=== PATIENT | male | born 1935 | race African-American/Black ===

== ENCOUNTER 2018-11-17 09:46 | Inpatient (IN) | payer MEDICARE, MEDICAID ==
[~2018-11-17] VITALS: Ht 177.8 cm; Wt 97.5 kg
--- NOTE | 2018-11-17 10:04 | NUR ---
ED Nurse Note: PT BROUGHT IN BY AMBULANCE FROM HOME. AOX4. PT C/O LEFT LEG WEAKNESS AND PAIN, 06/28 X 3 DAYS AGO TO THE POINT HE IS UNABLE TO WALK. PT STATES HE HAD 2 FALL X YESTERDAY. PT DENIES LOC OR HEAD TRAUMA. 3/5 MUSCLE STRENGTH OF LEFT FOOT AND LEG, CIRCULATION AND SENSATION INTACT, CAP REFILL <3 SECONDS, FULL ROM OF EXTREMITY. OF NOTE, PT STATES HE WAS SEEN AT [facility] X 2 DAYS AGO FOR THE SAME COMPLAINTS BUT WAS DC'D AFTER PAIN MEDICATIONS.
--- NOTE | 2018-11-17 10:04 | NUR ---
Note undone in EDM - 11/17/18 at 1013 by EAN ED Nurse Note: PT BROUGHT IN BY AMBULANCE FROM HOME. AOX4. PT C/O BILATERAL LEG WEAKNESS AND PAIN, 10/10 X 3 DAYS AGO TO THE POINT HE IS UNABLE TO WALK. PT STATES HE HAD 2 FALL X YESTERDAY. PT DENIES LOC OR HEAD TRAUMA. 3/5 MUSCLE STRENGTH OF BILATERAL FEET AND LEGS, CIRCULATION AND SENSATION INTACT, CAP REFILL <3 SECONDS, FULL ROM OF EXTREMITIES.
[2018-11-17 10:09] VITALS: BP 160/77
[2018-11-17] MEDS ORDERED: SODIUM CHLORIDE IVLG ONE (10:15)
[2018-11-17 10:50] LABS: APPEARANCE,URINE CLEAR; BASOPHILS % (AUTO) 0.7 % (0.0-2.0); BILIRUBIN, URINE NEGATIVE (NEGATIVE); COLOR,URINE PALE YELLOW; EOSINOPHILS % (AUTO) 1.7 % (0.0-3.0); GLUCOSE, URINE (UA) NEGATIVE (NEGATIVE); HEMATOCRIT 35.6 % (42.0-52.0); HEMOGLOBIN 11.8 G/DL (14.2-18.0); KETONES,URINE NEGATIVE (NEGATIVE); LEUKOCYTE ESTERASE ,URINE NEGATIVE (NEGATIVE); LYMPHOCYTES % (AUTO) 24.3 % (20.0-45.0); MEAN CORPUSCULAR VOLUME 90 FL (80-99); MONOCYTES % (AUTO) 6.6 % (1.0-10.0); NEUTROPHILS % (AUTO) 66.7 % (45.0-75.0); NITRITE,URINE NEGATIVE (NEGATIVE); PH,URINE 5 (4.5-8.0); PLATELET COUNT 167 K/UL (150-450); PROTEIN,URINE NEGATIVE (NEGATIVE); RED BLOOD COUNT 3.95 M/UL (4.70-6.10); RED CELL DISTRIBUTION WIDTH 12.8 % (11.6-14.8); UROBILINOGEN,URINE NORMAL MG/DL (0.0-1.0); WHITE BLOOD COUNT 5.3 K/UL (4.8-10.8)
[2018-11-17 11:06] LABS: ANION GAP 12 mmol/L (5-15); BLOOD UREA NITROGEN 17 mg/dL (7-18); CALCIUM 9.2 MG/DL (8.5-10.1); CARBON DIOXIDE 27 MMOL/L (21-32); CHLORIDE 102 MMOL/L (98-107); CREATININE 1.6 MG/DL (0.55-1.30); POTASSIUM 4.1 MMOL/L (3.5-5.1); SODIUM 141 MMOL/L (136-145)
[2018-11-17 11:18] LABS: ALANINE AMINOTRANSFERASE 11 U/L (12-78); ALBUMIN 3.6 G/DL (3.4-5.0); ALBUMIN/GLOBULIN RATIO 0.8 (1.0-2.7); ALKALINE PHOSPHATASE 98 U/L (46-116); ASPARTATE AMINO TRANSFERASE 12 U/L (15-37); BILIRUBIN,TOTAL 0.5 MG/DL (0.2-1.0); CKMB 0.9 NG/ML (0.0-3.6); CREATINE KINASE 53 U/L (26-308)
[2018-11-17] MEDS ORDERED: Ketorolac 30mg Inj IV ONE (11:45)
[2018-11-17 12:09] VITALS: BP 189/69
[2018-11-17] MEDS ORDERED: MITIGARE0.6 MG PO (12:20)
[2018-11-17] MEDS ORDERED: ATENOLOL100 MG ORAL (12:20)
[2018-11-17] MEDS ORDERED: ADALAT20 MG ORAL (12:20)
[2018-11-17] MEDS ORDERED: TAMSULOSIN HCL0.4 MG ORAL (12:20)
[2018-11-17] MEDS ORDERED: ALLOPURINOL100 M1 ORAL (12:20)
[2018-11-17] MEDS ORDERED: Fleet's Enema 133ml RECTAL ONE (12:30)
--- NOTE | 2018-11-17 12:30 | NUR ---
ED Nurse Note: PT TO CT VIA CAROLANN
--- NOTE | 2018-11-17 12:49 | NUR ---
ED Nurse Note: PT BACK FROM CT VIA CAROLANN.
--- NOTE | 2018-11-17 13:29 | Diagnostic Imaging Report ---
Indication: Bilateral flank pain and hematuria Technique: Spiral acquisitions obtained through the abdomen and pelvis. No oral contrast utilized, per emergency room physician request No IV contrast utilized, due to history of renal insufficiency.. Multiplanar reconstructions were generated. Total dose length product 978.52 mGycm. CTDIvol(s) 18.6 mGy. Dose reduction achieved using automated exposure control Comparison: None Findings: A 12 mm calcification projects posterior to the bladder on the right. This is in the expected region of the right ureteral orifice, and the right ureter does appear to lead into it. However, there is no evidence of hydronephrosis or hydroureter on the right. No intrarenal calculi are demonstrated on the right. No left renal or ureteral calculi, hydronephrosis, or hydroureter demonstrated. A parenchymal calcification is seen in the lower pole of the left kidney measuring approximately 6 mm in diameter. Adjacent to the renal sinus, there is a 10 mm area of slight hyperattenuation lack of IV contrast limits assessment of the renal parenchyma. No other gross renal parenchymal mass or cyst demonstrated. The bladder is distended. The prostate is enlarged, measuring 5 cm transverse diameter by 5 cm AP diameter, protrudes into the bladder lumen. It contains a calcification. Lack of IV contrast limits assessment of the other solid organs. The liver, gallbladder, spleen, adrenals, pancreas are all unremarkable. No retroperitoneal or mesenteric mass or adenopathy. No pelvic mass or adenopathy. The bladder is distended No evidence of colonic diverticulosis or diverticulitis. The appendix is normal. No small bowel distention. No free or loculated intraperitoneal gas or fluid. There is a tiny fat-containing umbilical hernia incidentally noted. The stomach demonstrates a small sliding-type hiatal hernia, is otherwise unremarkable. The distal esophagus and duodenum are unremarkable. The bones demonstrate numerous osteoblastic lesions scattered throughout the pelvis, spine, and ribs. There is a compression fracture deformity of the superior and inferior endplates of L2. Age of this is indeterminate. There are degenerative changes of the lumbar spine The included lung bases demonstrate posterior basilar atelectatic changes. Impression: 12 mm calcification posterior to the bladder on the right. This appears to be at the level of the ureteral orifice, and the right ureter appears to lead into it. However, very unusual for such a large calcification have traveled as far down the ureter, and even more unusual for not to be causing any hydronephrosis. Therefore, relation to the ureter is indeterminate. Correlate with clinical findings Numerous osseous osteoblastic lesions, likely representing metastatic prostate carcinoma. Enlarged prostate 1 cm slightly hyperattenuating lesion within the left renal sinus. Of uncertain etiology. Consider follow-up CT scan with contrast, versus follow-up sonography for better characterization Somewhat distended bladder L2 superior and inferior endplate compression fracture deformities, age indeterminate. Incidental findings of basilar pulmonary atelectatic changes, small hiatal hernia, degenerative spondylosis Findings discussed by phone with Dr. House at the time of interpretation The CT scanner at [facility] is accredited by the [employer] and the scans are performed using protocols designed to limit radiation exposure to as low as reasonably achievable to attain images of sufficient resolution adequate for diagnostic evaluation.
--- NOTE | 2018-11-17 13:50 | NUR ---
Julisa freeman in EDM - 11/17/18 at 1626 by EAN ED Nurse Note: [facility] UNIT CALLED FOR PT REPORT. RN STILL NOT READY.
--- NOTE | 2018-11-17 13:50 | NUR ---
ED Nurse Note: [facility] UNIT CALLED FOR PT REPORT. RN STILL NOT READY.
--- NOTE | 2018-11-17 14:04 | Diagnostic Imaging Report ---
Indications: Lower back pain, unable to walk for 3 days Technique: Spiral acquisitions obtained through the lumbar spine. Multiplanar reconstructions were generated. No IV contrast utilized. Total dose length product 757.83 mGycm. CTDIvol(s) 22.78 mGy. Dose reduction achieved using automated exposure control Comparison: none Findings: There is slight anterior offset of L4 on L5, otherwise normal bony alignment. There is a compression fracture deformity of the L2 vertebral body. This predominantly involves the superior and inferior endplates, but there is subtle slight height loss anteriorly. There may be one or more small fracture lines visible. The remaining vertebral body heights are preserved. There is a large intervertebral disc herniation within the superior endplate of T12. There is degenerative disc narrowing at L4-5. There is vacuum formation at L5-S1, although the disc space is preserved. Numerous osteoblastic lesions are seen scattered throughout all of the vertebral segments including the sacrum, primarily within the vertebral bodies. The included iliac bones also demonstrate numerous similar lesions. Numerous lucent foci within the vertebral bodies probably represent degenerative subchondral cysts No other acute fractures. No dislocations. At L3-4, there is mild circumferential annular bulge, which does not significantly narrow the spinal canal. The neural foramina are preserved. At L4-5, there is circumferential annular bulge. This, in combination with posterior osteophytes, the alignment abnormality, facet and ligamentum flavum hypertrophy results in mild to moderate narrowing of the spinal canal at this level. At the remaining disc levels, no significant disc bulge or protrusion, spinal stenosis, or neural foraminal narrowing. There is bilateral facet arthrosis at L3-4, L4-5, and L5-S1. The included extra spinal soft tissues are discussed in separate abdomen pelvis CT report. Note is made of small foci of saccular ectasia of the abdominal aorta, which is nonetheless not aneurysmal. Impression: Age indeterminate compression fracture deformity of the L2 vertebral body, as described. Consider MRI for better characterization if treatment would be contemplated. No other acute bony trauma Numerous osteoblastic lesions, as described, most likely representing prostatic prostate carcinoma, given stated clinical history of prostate carcinoma Spinal stenosis at L4-5 Findings discussed by phone with Dr. House in the emergency room at the time of interpretation The CT scanner at [facility] is accredited by the [employer] and the scans are performed using protocols designed to limit radiation exposure to as low as reasonably achievable to attain images of sufficient resolution adequate for diagnostic evaluation.
[2018-11-17 14:09] VITALS: BP 163/62
--- NOTE | 2018-11-17 14:12 | Diagnostic Imaging Report ---
Indication: Chest pain Technique: One view of the chest Comparison: none Findings: Questionable patchy atelectasis or consolidation is seen at the right lung base. The remainder the lungs are clear. The heart size is normal. There is suggestion of slight bilateral costophrenic angle blunting. There are degenerative changes of the left shoulder Impression: Questionable right basilar patchy atelectasis or consolidation Possible small bilateral pleural effusions
--- NOTE | 2018-11-17 14:15 | Emergency Room Report ---
History of Present Illness General Chief Complaint: Generalized Weakness Source: Patient Present Illness HPI This patient is brought in by EMS. He states that he has had all over body pain and weakness. The patient states that he has fallen multiple times at home. He states that he has pain all over his abdomen and his back. He states that his ribs hurt, his legs hurt. He states that he is unable to go on any further. He was unable to ambulate. He denies recent illness. He denies fever or chills. He denies nausea or vomiting. He states that he has had severe constipation and hasn't had a bowel movement for about a week. He states this is because he is on a bench medications to include morphine. He has no other complaints. Allergies: Coded Allergies: No Known Allergies (Unverified , 11/17/18) Patient History Past Medical History: see triage record, other - metastatic cancer Social History: Denies: smoking, alcohol use, drug use Reviewed Nursing Documentation: PMH: Agreed; PSxH: Agreed Nursing Documentation-PMH Past Medical History: No History, Except For Hx Cancer: Yes - Bone CA, Prostate CA Review of Systems All Other Systems: negative except mentioned in HPI Physical Exam Vital Signs Date Time Temp Pulse Resp B/P (MAP) Pulse Ox O2 Delivery O2 Flow Rate FiO2 11/17/18 09:53 98.2 102 18 139/78 97 Room Air Sp02 EP Interpretation: reviewed, normal General Appearance: no apparent distress, alert, GCS 15, non-toxic Head: normocephalic, atraumatic Eyes: bilateral eye normal inspection, bilateral eye PERRL ENT: hearing grossly normal, normal pharynx, no angioedema, normal voice Neck: full range of motion, supple/symm/no masses Respiratory: chest non-tender, lungs clear, normal breath sounds, no respiratory distress, no retraction, no accessory muscle use, speaking full sentences Cardiovascular #1: regular rate, rhythm, no edema Gastrointestinal: normal bowel sounds, soft, non-distended, no guarding, no rebound, tenderness - TTP diffusely Rectal: deferred Musculoskeletal: normal range of motion, tender - TTP along the L-spine, TTP in the L. thigh. Neurologic: alert, oriented x3, responsive, motor strength/tone normal, sensory intact, speech normal Psychiatric: judgement/insight normal, memory normal, mood/affect normal, no suicidal/homicidal ideation Skin: normal color, no rash, warm/dry, well hydrated Medical Decision Making Diagnostic Impression: Primary Impression: Fracture of lumbar spine Additional Impressions: Intractable pain Constipation Renal insufficiency Malignant hypertension ER Course This patient has intractable pain. He is also constipated secondary to likely medication side effect. He has diffuse abdominal and spinal metastatic cancer. Patient has difficult to control blood pressure. He may be noncompliant with his blood pressure medications. The patient is also found to have a fractured L2 vertebrae. The patient cannot ambulate secondary to pain and is unable to care for himself. He is a danger to himself with multiple falls at home. He is admitted for pain control, bowel regimen and further evaluation for home safety versus nursing home facility. Laboratory Tests Test 11/17/18 10:30 White Blood Count 5.3 K/UL (4.8-10.8) Red Blood Count 3.95 M/UL (4.70-6.10) L Hemoglobin 11.8 G/DL (14.2-18.0) L Hematocrit 35.6 % (42.0-52.0) L Mean Corpuscular Volume 90 FL (80-99) Mean Corpuscular Hemoglobin 29.8 PG (27.0-31.0) Mean Corpuscular Hemoglobin Concent 33.0 G/DL (32.0-36.0) Red Cell Distribution Width 12.8 % (11.6-14.8) Platelet Count 167 K/UL (150-450) Mean Platelet Volume 5.9 FL (6.5-10.1) L Neutrophils (%) (Auto) 66.7 % (45.0-75.0) Lymphocytes (%) (Auto) 24.3 % (20.0-45.0) Monocytes (%) (Auto) 6.6 % (1.0-10.0) Eosinophils (%) (Auto) 1.7 % (0.0-3.0) Basophils (%) (Auto) 0.7 % (0.0-2.0) Urine Color Pale yellow Urine Appearance Clear Urine pH 5 (4.5-8.0) Urine Specific [place] 1.015 (1.005-1.035) Urine Protein Negative (NEGATIVE) Urine Glucose (UA) Negative (NEGATIVE) Urine Ketones Negative (NEGATIVE) Urine Blood 5+ (NEGATIVE) H Urine Nitrite Negative (NEGATIVE) Urine Bilirubin Negative (NEGATIVE) Urine Urobilinogen Normal MG/DL (0.0-1.0) Urine Leukocyte Esterase Negative (NEGATIVE) Urine RBC 40-60 /HPF (0 - 0) H Urine WBC 0-2 /HPF (0 - 0) Urine Squamous Epithelial Cells Occasional /LPF Urine Bacteria Occasional /HPF (NONE) Sodium Level 141 MMOL/L (136-145) Potassium Level 4.1 MMOL/L (3.5-5.1) Chloride Level 102 MMOL/L (98-107) Carbon Dioxide Level 27 MMOL/L (21-32) Anion Gap 12 mmol/L (5-15) Blood Urea Nitrogen 17 mg/dL (7-18) Creatinine 1.6 MG/DL (0.55-1.30) H Estimate Glomerular Filtration Rate mL/min (>60) Glucose Level 122 MG/DL (74-106) H Lactic Acid Level 1.90 mmol/L (0.4-2.0) Calcium Level 9.2 MG/DL (8.5-10.1) Total Bilirubin 0.5 MG/DL (0.2-1.0) Aspartate Amino Transferase (AST) 12 U/L (15-37) L Alanine Aminotransferase (ALT) 11 U/L (12-78) L Alkaline Phosphatase 98 U/L (46-116) Total Creatine Kinase 53 U/L (26-308) Creatine Kinase MB 0.9 NG/ML (0.0-3.6) Creatine Kinase MB Relative Index 1.6 Troponin I 0.000 ng/mL (0.000-0.056) Total Protein 8.0 G/DL (6.4-8.2) Albumin 3.6 G/DL (3.4-5.0) Globulin 4.4 g/dL Albumin/Globulin Ratio 0.8 (1.0-2.7) L Urine Opiates Screen Negative (NEGATIVE) Urine Barbiturates Screen Negative (NEGATIVE) Phencyclidine (PCP) Screen Negative (NEGATIVE) Urine Amphetamines Screen Negative (NEGATIVE) Urine Benzodiazepines Screen Negative (NEGATIVE) Urine Cocaine Screen Negative (NEGATIVE) Urine Marijuana (THC) Screen Negative (NEGATIVE) EKG Diagnostic Results Rate: normal Rhythm: NSR ST Segments: no acute changes Rhythm Strip Diag. Results EP Interpretation: yes Rate: 90's Rhythm: NSR, no PVC's, no ectopy Chest X-Ray Diagnostic Results Chest X-Ray Diagnostic Results : Chest X-Ray Ordered: Yes # of Views/Limited/Complete: 1 View Indication: Other EP Interpretation: No Interpretation: other - Impression: Questionable right basilar patchy atelectasis or consolidation Impression: Other - See above Electronically Signed by: Laquita Javier DO CT/MRI/US Diagnostic Results CT/MRI/US Diagnostic Results : Imaging Test Ordered: CT abd/pelvis, CT L-spine Impression CT abd/pelvis:Impression: 12 mm calcification posterior to the bladder on the right. This appears to be at the level of the ureteral orifice, and the right ureter appears to lead into it. However, very unusual for such a large calcification have traveled as far down the ureter, and even more unusual for not to be causing any hydronephrosis. Therefore, relation to the ureter is indeterminate. Correlate with clinical findings Numerous osseous osteoblastic lesions, likely representing metastatic prostate carcinoma. Enlarged prostate 1 cm slightly hyperattenuating lesion within the left renal sinus. Of uncertain etiology. Consider follow-up CT scan with contrast, versus follow-up sonography for better characterization Somewhat distended bladder L2 superior and inferior endplate compression fracture deformities, age indeterminate. Incidental findings of basilar pulmonary atelectatic changes, small hiatal hernia, degenerative spondylosis CT L-spine Impression: Age indeterminate compression fracture deformity of the L2 vertebral body, as described. Consider MRI for better characterization if treatment would be contemplated. No other acute bony trauma Numerous osteoblastic lesions, as described, most likely representing prostatic prostate carcinoma, given stated clinical history of prostate carcinoma Spinal stenosis at L4-5 Last Vital Signs Date Time Temp Pulse Resp B/P (MAP) Pulse Ox O2 Delivery O2 Flow Rate FiO2 11/17/18 12:09 98.3 93 16 189/69 100 Room Air Disposition: ADMITTED INPATIENT Condition: Serious Referrals: NOT CHOSEN IPA/,REFERRING (PCP) Laquita Javier DO Nov 17, 2018 14:15
--- NOTE | 2018-11-17 14:19 | NUR ---
ED Nurse Note: BLOOD DRAWN FOR CALCIUM TOTAL AND IONIZED CALCIUM AND SENT TO LAB.
[2018-11-17 14:54] LABS: CALCIUM 8.4 MG/DL (8.5-10.1)
--- NOTE | 2018-11-17 15:35 | NUR ---
ED Nurse Note: [facility] UN[facility] CALLED FOR REPORT. RN NOT READY. WILL CALL BACK FOR REPORT.
--- NOTE | 2018-11-17 15:50 | NUR ---
ED Nurse Note: [facility] UNIT CALLED FOR REPORT. RN STILL NOT READY.
--- NOTE | 2018-11-17 16:30 | NUR ---
ED Nurse Note: [facility] UN[facility] CALLED FOR PT REPORT. REPORT GIVEN TO CHARGE NURSE, SHAW. PT TAKEN UP TO MS UNIT VIA GURNEY WITH ALL BELONGINGS ACCOMPANIED BY LUISA, TALITA.
--- NOTE | 2018-11-17 18:20 | NUR ---
CASE MANAGEMENT: REVIEW 82/M BIBA FROM HOME CC: INTRACTABLE PAIN S/P FALL SI: FRACTURE LUMBAR SPINE . MALIGNANT HYPERTENSION T 98.2 HR 102 RR 18 BP 214/70 SAT 97% ROOM AIR H/H 11.8/35.6 AST 212 ALT 11 IS: NS IVF BOLUS X1 TORADOL IV X1 HYDRALAZINE IV X1 HYDRALAZINE IV X1 PATIENT ADMITTED TO MED/SURG UNIT 11/17/2018 DCP: PATIENT IS FROM HOME
--- NOTE | 2018-11-17 19:19 | NUR ---
HAND-OFF: Report given to George GREER.
--- NOTE | 2018-11-17 19:42 | NUR ---
NURSE NOTES: Patient is awake, alert and verbally responsive. Able to make needs known. NO complaint of pain or discomfort at the moment. Kept clean and comfortable. Bed in low and locked position. Skin is warm and dry, intact. Abdomen is soft. Iv site noted. Call light is at bedside. Will continue plan of care.
[2018-11-17 20:00] VITALS: BP 130/58
[2018-11-17] MEDS: Tamsulosin 0.4mg cap ORAL SCH (20:30)
[2018-11-17] MEDS: HYDROcodone/Acetamin 10/325 tab ORAL PRN (20:32)
[2018-11-17] MEDS: Heparin 5000 units/ml inj SUBQ SCH (20:33)
--- NOTE | 2018-11-17 20:45 | NUR ---
NURSE NOTES: Complained of pain lower back pain, given PRN pain medication as ordered. Call light is at bedside. Will continue plan of care.
[2018-11-18] VITALS: BP_SYST 119; BP_SYST 156; BP_DIAS 59; BP_DIAS 87
[2018-11-18 04:00] VITALS: BP 157/78
--- NOTE | 2018-11-18 07:19 | NUR ---
HAND-OFF: Report given to ZEN Arce.
[2018-11-18 08:00] VITALS: BP 149/62
[2018-11-18 08:33] LABS: BASOPHILS % (AUTO) 0.6 % (0.0-2.0); EOSINOPHILS % (AUTO) 3.5 % (0.0-3.0); HEMATOCRIT 30.3 % (42.0-52.0); HEMOGLOBIN 10.2 G/DL (14.2-18.0); LYMPHOCYTES % (AUTO) 28.4 % (20.0-45.0); MEAN CORPUSCULAR VOLUME 90 FL (80-99); MONOCYTES % (AUTO) 6.9 % (1.0-10.0); NEUTROPHILS % (AUTO) 60.6 % (45.0-75.0); PLATELET COUNT 130 K/UL (150-450); RED BLOOD COUNT 3.38 M/UL (4.70-6.10); RED CELL DISTRIBUTION WIDTH 12.8 % (11.6-14.8); WHITE BLOOD COUNT 4.3 K/UL (4.8-10.8)
[2018-11-18] MEDS: Allopurinol 100mg Tab ORAL SCH (08:33)
[2018-11-18] MEDS: Heparin 5000 units/ml inj SUBQ SCH ×2 (08:34→21:00)
--- NOTE | 2018-11-18 08:45 | NUR ---
NURSE NOTES: received patient A/A/Ox4, in bed lying, able to make things known. ambulatory with minimal assistance. Does ADLs' independently. No acute resp distress noted. call light is within reach, siderails are up x3, IV access patent and intact. will cont to monitor.
[2018-11-18] MEDS: HYDROcodone/Acetamin 10/325 tab ORAL PRN ×2 (08:48→17:23)
--- NOTE | 2018-11-18 09:08 | History & Physical ---
History and Physical History & Physicial seen and examined. Full Dictation completed 908 AM on November 18 Hitesh Summers MD Nov 18, 2018 09:08
--- NOTE | 2018-11-18 09:10 | General Progress Note ---
Assessment/Plan Assessment/Plan seen and examined. A/P: 1- Acute/chroninc LBP: metastasis! compression deformity 2- Hematuria: Plan: 1- onc, Uro and Pain mgt consulted Full note in progress Subjective Allergies: Coded Allergies: No Known Allergies (Unverified , 11/17/18) Objective Last 24 Hour Vital Signs Date Time Temp Pulse Resp B/P (MAP) Pulse Ox O2 Delivery O2 Flow Rate FiO2 11/18/18 08:35 93 132/64 11/18/18 04:00 98.2 95 17 157/78 (104) 98 11/18/18 00:00 98.2 87 16 119/59 (79) 98 11/17/18 21:00 Room Air 11/17/18 20:00 99.0 100 18 130/58 (82) 97 11/17/18 18:16 Room Air 11/17/18 16:29 98.6 100 19 152/61 99 Room Air 11/17/18 14:43 163/62 11/17/18 14:09 98.5 100 20 163/62 100 Room Air 11/17/18 12:09 98.3 93 16 189/69 100 Room Air 11/17/18 11:57 214/70 11/17/18 10:09 94 14 Room Air 11/17/18 10:09 98.4 94 14 160/77 100 Room Air 11/17/18 09:53 98.2 102 18 139/78 97 Room Air Intake and Output 11/17/18 11/18/18 19:00 07:00 Intake Total 3700 ml Output Total 1300 ml 550 ml Balance 2400 ml -550 ml Intake IV Total 3700 ml Output Urine Total 1300 ml 550 ml # Voids 1 # Bowel Movements 1 Laboratory Tests 11/17/18 10:30: White Blood Count 5.3, Red Blood Count 3.95L, Hemoglobin 11.8L, Hematocrit 35.6L , Mean Corpuscular Volume 90, Mean Corpuscular Hemoglobin 29.8, Mean Corpuscular Hemoglobin Concent 33.0, Red Cell Distribution Width 12.8, Platelet Count 167, Mean Platelet Volume 5.9L, Neutrophils (%) (Auto) 66.7, Lymphocytes ( %) (Auto) 24.3, Monocytes (%) (Auto) 6.6, Eosinophils (%) (Auto) 1.7, Basophils (%) (Auto) 0.7, Urine Color Pale yellow, Urine Appearance Clear, Urine pH 5, Urine Specific [place] 1.015, Urine Protein Negative, Urine Glucose (UA) Negative, Urine Ketones Negative, Urine Blood 5+H, Urine Nitrite Negative, Urine Bilirubin Negative, Urine Urobilinogen Normal, Urine Leukocyte Esterase Negative, Urine RBC 40-60H, Urine WBC 0-2, Urine Squamous Epithelial Cells Occasional, Urine Bacteria Occasional, Sodium Level 141, Potassium Level 4.1, Chloride Level 102, Carbon Dioxide Level 27, Anion Gap 12, Blood Urea Nitrogen 17, Creatinine 1.6H, Estimat Glomerular Filtration Rate , Glucose Level 122H, Lactic Acid Level 1.90, Calcium Level 9.2, Total Bilirubin 0.5, Aspartate Amino Transf (AST/SGOT) 12L, Alanine Aminotransferase (ALT/SGPT) 11L, Alkaline Phosphatase 98, Total Creatine Kinase 53, Creatine Kinase MB 0.9, Creatine Kinase MB Relative Index 1.6, Troponin I 0.000, Total Protein 8.0, Albumin 3.6, Globulin 4.4, Albumin/Globulin Ratio 0.8L, Urine Opiates Screen Negative, Urine Barbiturates Screen Negative, Phencyclidine (PCP) Screen Negative, Urine Amphetamines Screen Negative, Urine Benzodiazepines Screen Negative, Urine Cocaine Screen Negative, Urine Marijuana (THC) Screen Negative 11/17/18 14:15: Calcium Level 8.4L, Ionized Calcium (Measured) 1.00L 11/18/18 07:50: White Blood Count 4.3L, Red Blood Count 3.38L, Hemoglobin 10.2L, Hematocrit 30.3L, Mean Corpuscular Volume 90, Mean Corpuscular Hemoglobin 30.1, Mean Corpuscular Hemoglobin Concent 33.5, Red Cell Distribution Width 12.8, Platelet Count 130L, Mean Platelet Volume 6.5, Neutrophils (%) (Auto) 60.6, Lymphocytes ( %) (Auto) 28.4, Monocytes (%) (Auto) 6.9, Eosinophils (%) (Auto) 3.5H, Basophils (%) (Auto) 0.6, Sodium Level [Pending], Potassium Level [Pending], Chloride Level [Pending], Carbon Dioxide Level [Pending], Blood Urea Nitrogen [ Pending], Creatinine [Pending], Estimat Glomerular Filtration Rate [Pending], Glucose Level [Pending], Calcium Level [Pending], Hemoglobin A1c 6.2H, Triglycerides Level [Pending], Cholesterol Level [Pending], LDL Cholesterol [ Pending], HDL Cholesterol [Pending], Cholesterol/HDL Ratio [Pending], Thyroid Stimulating Hormone (TSH) [Pending] Height (Feet): 5 Height (Inches): 10.00 Weight (Pounds): 270 Hitesh Summers MD Nov 18, 2018 09:10
[2018-11-18 09:30] LABS: ANION GAP 11 mmol/L (5-15); BLOOD UREA NITROGEN 19 mg/dL (7-18); CALCIUM 8.5 MG/DL (8.5-10.1); CARBON DIOXIDE 24 MMOL/L (21-32); CHLORIDE 105 MMOL/L (98-107); CHOLESTEROL 186 MG/DL (< 200); CREATININE 1.6 MG/DL (0.55-1.30); HDL CHOLESTEROL 42 MG/DL (40-60); POTASSIUM 3.5 MMOL/L (3.5-5.1); SODIUM 140 MMOL/L (136-145); TRIGLYCERIDES 113 MG/DL (30-150)
[2018-11-18 12:00] VITALS: BP 150/75
[2018-11-18 16:00] VITALS: BP 121/54
--- NOTE | 2018-11-18 17:02 | NUR ---
PT Note PT jeri completed, treatment initiated. Patient's gait is very unsteady. He needs PT to increase his muscle strength and balance to improve his safety in his functional mobility and gait. Recommend DC to a SNF. Addendum: 11/18/18 at 1703 by CARMEN POZO PT Amended: Links added.
--- NOTE | 2018-11-18 19:14 | NUR ---
HAND-OFF: Report given to
--- NOTE | 2018-11-18 19:36 | NUR ---
NURSE NOTES: Patient in bed, awake, alert and verbally responsive. Able to make needs known. Respiration is even and unlabored. No complaint of pain or discomfort noted. Skin is warm and dry to touch. Abdomen is soft and non distended. Bed in low and locked position. Provided safe environment. Call light is at bedside. Will continue plan of care.
[2018-11-18 20:00] VITALS: BP 121/69
--- NOTE | 2018-11-18 20:15 | History and Physical Report ---
DATE OF ADMISSION: 11/17/2018 SOURCE OF INFORMATION: The patient and EMR. HISTORY OF PRESENT ILLNESS: The patient is an 82-year-old male with a history of back pain. The patient presented with worsening of the lower back pain for the last couple of weeks. The patient had presented to the [facility] at least 2 or 3 times for the last couple of months where the same problem had been reportedly assessment. At the time of evaluation, the patient's vital signs remained stable. Initial blood work shows renal failure. The patient reported 1 incident of the fall at home that happened after the pain started. He denies any problem. He denies any nausea, vomitus, diarrhea, or constipation. No fever, no chills. IMAGING: Chest x-ray dated 11/17/2018 shows right basilar patchy infiltrate. Spine CT scan of lumbar spine shows compression deformity fractures at L2 and spinal stenosis at L4-L5 in association with the multiple abnormal blastic lesions in the spine. CT scan of abdomen, pelvis dated 11/17/2018 shows enlarged prostate, L2 compression fractures. PAST SURGICAL HISTORY: The patient reported prostate cancer and resection. CURRENT HOSPITAL MEDICATIONS: Including, but not limited to, colchicine, atenolol, allopurinol. PAST MEDICAL HISTORY: BPH, gout, and hypertension. PHYSICAL EXAMINATION: VITAL SIGNS: Blood pressure 130/80, temperature 98.2, pulse ox 98% on room air, respiratory rate 100. HEAD AND NECK: Atraumatic and normocephalic. CHEST: Clear to auscultation. HEART: S1, S2. Regular rate and rhythm. ABDOMEN: Soft, no organomegaly. MUSCULOSKELETAL: No gross lateralized motor deficit. NEUROLOGY: Awake, alert, and oriented x3. LABORATORY DATA: Dated 11/17/2018 shows WBC 5.3, hemoglobin 11.8, platelet of 168,000. Sodium 141, potassium 4.1, creatinine of 1.6, alkaline phosphatase of 98, calcium 9.2. Urine shows 5+ blood. ASSESSMENT AND PLAN: 1. Acute on chronic low back pain. Differential diagnosis including next metastatic prostate CA. 2. Multiple osteoblastic osseous lesions in the lumbar spine suspicious of metastatic process in this patient with a history of prostate cancers, the possibility of metastasis cannot be excluded. 3. Compression deformity fractures at L2-age indeterminate. 4. Microscopic hematuria. 5. Anemia. 6. Renal failure - age indeterminate. 7. Gastrointestinal and deep vein thrombosis prophylaxis. I will consult Pain Management, Urology, Oncology. The time of this dictation does not reflect the actual time of encounter. Hitesh Summers M.D. DR: CALE JOB#: [id number] CC:
--- NOTE | 2018-11-18 20:30 | Consultation ---
DATE OF CONSULTATION: 11/18/2018 PULMONARY CONSULTATION HISTORY OF PRESENT ILLNESS: This is an 82-year-old male with history of metastatic prostate carcinoma. He normally receives his oncological care by Dr. Mandy Art at [facility]. He came to the hospital last night with complaints of back pain. He was seen and worked up and I was consulted because of abnormal pulmonary findings. The patient reports he has diffuse body aches and pains. He has fallen multiple times at home. He also reports constipation. His calcium was found to be normal. PAST MEDICAL HISTORY: Notable for prostate cancer with metastasis. SOCIAL HISTORY: No alcohol or tobacco usage. PREVIOUS SURGERIES: None. ALLERGIES: None. HOME MEDICATIONS: Reviewed and reconciled in the chart. REVIEW OF SYSTEMS: Denies any headaches, hematemesis, melena, or hematochezia. PHYSICAL EXAMINATION: GENERAL: Reveals an elderly male. HEENT: Unremarkable. CHEST: Clear breath sounds bilaterally. HEART: Normal heart sounds. ABDOMEN: Soft. EXTREMITIES: There is no edema. LABORATORY AND DIAGNOSTIC DATA: Laboratory testing and imaging studies reviewed. His abdominal pelvis CT shows L2 superior and inferior endplate compression fractures. He has basilar pulmonary atelectasis and a small hiatal hernia. C-spine CT was also obtained, which showed L3-L4 circumferential annular bulge as well as L4-L5 bulge. There is a fracture of the L2 vertebra and numerous osteoblastic lesions as well as spinal stenosis. X-ray of chest was reviewed, which showed small bilateral effusions. Lab testing shows white count 4.3 and hemoglobin of 10. Creatinine 1.6. Hemoglobin A1c 6.2, calcium 8.4, and ionized calcium 1.0. IMPRESSION: 1. Small bilateral pleural effusions. 2. Pulmonary atelectasis. 3. Prostate carcinoma with metastasis. 4. L3 compression fracture. DISCUSSION: At this point, the pulmonary atelectasis and effusions do not need any significant aggressive treatment. He would need benefit from fluid hydration given his elevated BUN and creatinine. He would benefit from oncologic evaluation; however, his regular physician is at [facility] and I will try and contact him for the same. We will provide pain relief. 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 Thank you for the consultation. Garrett Cook M.D. DR: AYALA JOB#: [id number] CC:
[2018-11-18] MEDS: Ketorolac 30mg Inj IV PRN (21:04)
[2018-11-18] MEDS: Tamsulosin 0.4mg cap ORAL SCH (21:04)
[2018-11-19] VITALS: BP 122/54
[2018-11-19 04:00] VITALS: BP 124/57
--- NOTE | 2018-11-19 07:19 | NUR ---
HAND-OFF: Report given to PERCY Rivas.
--- NOTE | 2018-11-19 07:35 | NUR ---
NURSE NOTES: pt in bed with no sob nor in any form of distress noted. Breathing regular and unlabored. denies any pain at this time. call light within reach at all time. will continue to monitor
[2018-11-19 08:00] VITALS: BP 143/60
[2018-11-19] MEDS: Allopurinol 100mg Tab ORAL SCH (08:04)
[2018-11-19] MEDS: Ketorolac 30mg Inj IV PRN (08:04)
[2018-11-19] MEDS: Heparin 5000 units/ml inj SUBQ SCH ×2 (08:18→21:00)
--- NOTE | 2018-11-19 09:06 | Pulmonology Progress Note ---
Assessment/Plan Assessment/Plan 1. Small bilateral pleural effusions. 2. Pulmonary atelectasis. 3. Prostate carcinoma with metastasis. 4. L3 compression fracture. DISCUSSION: At this point, the pulmonary atelectasis and effusions do not need any significant aggressive treatment. Continue fluid hydration given his elevated BUN and creatinine. H Continue medications for pain relief. 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 Thank you for the consultation. Garrett Cook M.D. Subjective Interval Events: Pain improved; breathing well Constitutional: Reports: no symptoms HEENT: Repors: no symptoms Respiratory: Reports: no symptoms Cardiovascular: Reports: no symptoms Gastrointestinal/Abdominal: Reports: no symptoms Genitourinary: Reports: no symptoms Allergies: Coded Allergies: No Known Allergies (Unverified , 11/17/18) Objective Last 24 Hour Vital Signs Date Time Temp Pulse Resp B/P (MAP) Pulse Ox O2 Delivery O2 Flow Rate FiO2 11/19/18 08:34 98.0 11/19/18 08:13 66 143/60 11/19/18 04:00 98.0 79 18 124/57 (79) 95 11/19/18 00:00 98.3 63 17 122/54 (76) 96 11/18/18 20:57 Room Air 11/18/18 20:00 98.6 76 17 121/69 (86) 95 11/18/18 17:53 98.9 11/18/18 16:00 98.9 71 20 121/54 (76) 98 11/18/18 12:00 98.3 72 18 150/75 (100) 98 Intake and Output 11/18/18 11/19/18 18:59 06:59 Intake Total 600 ml Output Total 700 ml Balance 600 ml -700 ml Intake Oral 600 ml Output Urine Total 700 ml # Voids 6 General Appearance: no acute distress HEENT: normocephalic Respiratory/Chest: chest wall non-tender, lungs clear Cardiovascular: normal peripheral pulses, normal rate Abdomen: normal bowel sounds, soft, non tender Microbiology Date/Time Source Procedure Growth Status 11/17/18 10:30 Blood Blood Culture - Preliminary NO GROWTH AFTER 24 HOURS Resulted 11/17/18 10:30 Blood Blood Culture - Preliminary NO GROWTH AFTER 24 HOURS Resulted Current Medications Medications (Trade) Dose Ordered Sig/Danny Route PRN Reason Start Time Stop Time Status Last Admin Dose Admin Acetaminophen (Tylenol) 650 mg Q6H PRN ORAL Mild Pain/Temp > 100.5 11/17/18 17:45 12/17/18 17:44 Acetaminophen/ Hydrocodone Bitart ([place] 10/325) 1 tab Q4H PRN ORAL Moderate Pain (Pain Scale 4-6) 11/17/18 17:45 11/24/18 17:44 11/18/18 17:23 Allopurinol (Zyloprim) 100 mg DAILY ORAL 11/18/18 09:00 12/18/18 08:59 11/19/18 08:04 Atenolol (Tenormin) 100 mg DAILY ORAL 11/18/18 09:00 12/18/18 08:59 11/19/18 08:13 Clonidine HCl (Catapres Tab) 0.1 mg Q4H PRN ORAL SBP > 170mmHg 11/17/18 18:30 12/17/18 17:44 Colchicine (Colchicine) 0.6 mg DAILY ORAL 11/18/18 09:00 12/18/18 08:59 11/19/18 08:04 Heparin Sodium (Porcine) (Heparin 5000 units/ml) 5,000 units EVERY 12 HOURS SUBQ 11/17/18 21:00 12/17/18 20:59 11/19/18 08:18 Ketorolac Tromethamine (Toradol 30mg) 30 mg Q6H PRN IV Severe Pain (Pain Scale 7-10) 11/17/18 17:45 11/22/18 17:44 11/19/18 08:04 Pantoprazole (Protonix) 40 mg DAILY ORAL 11/18/18 09:00 12/18/18 08:59 11/19/18 08:04 Tamsulosin HCl (Flomax) 0.4 mg BEDTIME ORAL 11/17/18 21:00 12/17/18 20:59 11/18/18 21:04 Garrett Cook MD Nov 19, 2018 09:06
[2018-11-19 12:00] VITALS: BP 145/70
--- NOTE | 2018-11-19 13:06 | General Progress Note ---
Assessment/Plan Assessment/Plan S: I am feeling better O: pain is well managed PHYSICAL EXAMINATION:HEAD AND NECK: Atraumatic and normocephalic. CHEST: Clear to auscultation. HEART: S1, S2. Regular rate and rhythm. ABDOMEN: Soft, no organomegaly. MUSCULOSKELETAL: Decreased ROM of LE secondary to pain NEUROLOGY: Awake, alert, and oriented x3. Meds: reviewed and reconciled in the chart ASSESSMENT AND PLAN: 1. Acute on chronic low back pain. Differential diagnosis including metastatic prostate CA. 2. Multiple osteoblastic osseous lesions in the lumbar spine suspicious of metastatic process in this patient with a history of prostate cancers, the possibility of metastasis cannot be excluded. 3. Compression deformity fractures at L2-age indeterminate. 4. Microscopic hematuria. 5. Anemia. 6. Renal failure - age indeterminate. 7. Gastrointestinal and deep vein thrombosis prophylaxis. Plan: Notes from pulmonary reviewed PT.OT consulted Pain management Oncology management, deferred to established primary out patient provide Subjective Allergies: Coded Allergies: No Known Allergies (Unverified , 11/17/18) Objective Last 24 Hour Vital Signs Date Time Temp Pulse Resp B/P (MAP) Pulse Ox O2 Delivery O2 Flow Rate FiO2 11/19/18 12:00 97.9 60 18 145/70 (95) 99 11/19/18 09:00 Room Air 11/19/18 08:34 98.0 11/19/18 08:13 66 143/60 11/19/18 08:00 98.0 66 18 143/60 (87) 99 11/19/18 04:00 98.0 79 18 124/57 (79) 95 11/19/18 00:00 98.3 63 17 122/54 (76) 96 11/18/18 20:57 Room Air 11/18/18 20:00 98.6 76 17 121/69 (86) 95 11/18/18 17:53 98.9 11/18/18 16:00 98.9 71 20 121/54 (76) 98 Intake and Output 11/18/18 11/19/18 19:00 07:00 Intake Total 600 ml Output Total 700 ml Balance 600 ml -700 ml Intake Oral 600 ml Output Urine Total 700 ml # Voids 6 Laboratory Tests 11/19/18 12:15: Sodium Level [Pending], Potassium Level [Pending], Chloride Level [Pending], Carbon Dioxide Level [Pending], Blood Urea Nitrogen [Pending], Creatinine [ Pending], Estimat Glomerular Filtration Rate [Pending], Glucose Level [Pending] , Calcium Level [Pending] Height (Feet): 5 Height (Inches): 10.00 Weight (Pounds): 270 Hitesh Summers MD Nov 19, 2018 13:06
[2018-11-19 13:09] LABS: ANION GAP 7 mmol/L (5-15); BLOOD UREA NITROGEN 28 mg/dL (7-18); CALCIUM 8.3 MG/DL (8.5-10.1); CARBON DIOXIDE 25 MMOL/L (21-32); CHLORIDE 106 MMOL/L (98-107); CREATININE 1.8 MG/DL (0.55-1.30); POTASSIUM 4.4 MMOL/L (3.5-5.1); SODIUM 138 MMOL/L (136-145)
--- NOTE | 2018-11-19 15:15 | Consultation ---
DATE OF CONSULTATION: 11/19/2018 CONSULTING PHYSICIAN: Jessee Crews M.D. REFERRING PHYSICIAN: Garrett Cook M.D. REASON FOR CONSULTATION: 1. Acute kidney injury. 2. Gout. HISTORY OF PRESENT ILLNESS: The patient is a pleasant 82-year-old gentleman with back pain. The patient has been treated by his oncologist for metastatic prostate cancer. Upon admission for further evaluation and care of his back pain, it was noted that the patient had a creatinine of 1.6. The patient says that he is followed by a photolettering machine operator, Dr. Luis at [facility] for his gout. He was noted to have a calcification also in the bladder via CT. The patient denies any nausea, vomiting, or diarrhea. PAST MEDICAL HISTORY: 1. Chronic kidney disease. 2. BPH. 3. Prostate cancer with metastasis. 4. Gout. 5. Hypertension. PAST SURGICAL HISTORY: Prostate cancer resection. FAMILY HISTORY: Positive for hypertension and gout. ALLERGIES: Known drug allergies REVIEW OF SYSTEMS: NEUROLOGIC: The patient denies headache, change in vision, syncope, or presyncopal episodes. CARDIOVASCULAR: No current chest pain, palpitations, or angina. PULMONARY: No difficulty breathing, productive cough, or sputum. GASTROINTESTINAL/GENITOURINARY: No change in urinary or bowel habits. No nausea, vomiting, or diarrhea. ENDOCRINOLOGY: No night sweats, fevers, or chills. MUSCULOSKELETAL: The patient is complaining of low back pain. LABORATORY DATA: Labs dated 11/18/2018, sodium 140, potassium 3.5, and creatinine 1.6. Hemoglobin A1c 6.2. White cell count 4.3, hemoglobin 10.2, and platelet count 130. PHYSICAL EXAMINATION: VITAL SIGNS: Blood pressure 143/60, respiratory rate 18, pulse 66, and temperature 98.0. GENERAL: The patient is awake and alert, not in distress. HEENT: Extraocular muscles are intact. No lymphadenopathy noted. Oropharyngeal mucosa is clear and dry. CARDIOVASCULAR: S1 and S2. No rubs or gallops. PULMONARY: Clear to auscultation bilaterally. No rales, rhonchi, or wheezes. ABDOMEN: Nondistended and nontender. EXTREMITIES: No edema noted. ASSESSMENT AND PLAN: 1. Acute kidney injury on chronic kidney disease, stage 3. Baseline creatinine is not entirely clear. At this time, most likely secondary to component of chronic kidney disease from hyperuricemia. We will continue allopurinol and we will discontinue Toradol. We recommend no further NSAIDs. Pain management control per pain doctor. At this time, CT of the abdomen and pelvis has been noted. No renal ultrasound required. 2. Bladder calcification, possible within the ureter. Urology has been consulted for further evaluation and management. 3. Low back pain, rule out metastasis from prostate cancer. 4. Hypertension, stable. Adjust medication as deemed appropriate. 5. Gout. Continue allopurinol. Let me take this opportunity to thank Dr. Cook. Jessee Crews MD DR: VIRGEN JOB#: [id number] CC:
[2018-11-19 16:00] VITALS: BP 140/68
[2018-11-19] MEDS: HYDROcodone/Acetamin 10/325 tab ORAL PRN ×2 (17:40→21:30)
--- NOTE | 2018-11-19 19:10 | NUR ---
HAND-OFF: Report given to PERCY Vazquez.
--- NOTE | 2018-11-19 19:33 | NUR ---
NURSE NOTES: Patient in bed, awake, alert and verbally responsive. Able to make needs known. Respiration is even and unlabored. No complaint of pain or discomfort. Skin is warm and dry to touch, abdomen is soft and non distended. IV site noted on bilateral arm, patent. Bed in low and locked position, provided safe environment. Call light is at bedside. Will continue plan of care.
[2018-11-19 20:00] VITALS: BP 149/85
[2018-11-19] MEDS: Tamsulosin 0.4mg cap ORAL SCH (21:29)
[2018-11-20 04:00] VITALS: BP 148/65
--- NOTE | 2018-11-20 07:05 | NUR ---
HAND-OFF: Report given to Flako Rivas.
--- NOTE | 2018-11-20 07:13 | Pulmonology Progress Note ---
Assessment/Plan Assessment/Plan 1. Small bilateral pleural effusions. 2. Pulmonary atelectasis. 3. Prostate carcinoma with metastasis. 4. L3 compression fracture. DISCUSSION: At this point, the pulmonary atelectasis and effusions do not need any significant aggressive treatment. Continue fluid hydration given his elevated BUN and creatinine. Continue allopurinol for hyperuricemia DC Toradol Continue medications for pain relief. 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 Garrett Cook M.D. Subjective Interval Events: Pain better; cr 1.8 yesterday Constitutional: Reports: no symptoms HEENT: Repors: no symptoms Respiratory: Reports: no symptoms Cardiovascular: Reports: no symptoms Gastrointestinal/Abdominal: Reports: no symptoms Genitourinary: Reports: no symptoms Allergies: Coded Allergies: No Known Allergies (Unverified , 11/17/18) Objective Last 24 Hour Vital Signs Date Time Temp Pulse Resp B/P (MAP) Pulse Ox O2 Delivery O2 Flow Rate FiO2 11/20/18 04:00 98.6 96 18 148/65 (92) 98 11/19/18 21:00 Room Air 11/19/18 20:00 98.8 96 20 149/85 (106) 98 11/19/18 18:10 97.9 11/19/18 16:00 98.0 64 18 140/68 (92) 98 11/19/18 12:00 97.9 60 18 145/70 (95) 99 11/19/18 09:00 Room Air 11/19/18 08:34 98.0 11/19/18 08:13 66 143/60 11/19/18 08:00 98.0 66 18 143/60 (87) 99 Intake and Output 11/19/18 11/20/18 19:00 07:00 Intake Total 880 ml 1200 ml Output Total 800 ml Balance 880 ml 400 ml Intake Oral 880 ml 1200 ml Output Urine Total 800 ml # Voids 7 3 # Bowel Movements 2 General Appearance: no acute distress HEENT: normocephalic Respiratory/Chest: chest wall non-tender Cardiovascular: normal peripheral pulses, normal rate Abdomen: normal bowel sounds, soft, non tender Extremities: no cyanosis Microbiology Date/Time Source Procedure Growth Status 11/17/18 10:30 Blood Blood Culture - Preliminary NO GROWTH AFTER 48 HOURS Resulted 11/17/18 10:30 Blood Blood Culture - Preliminary NO GROWTH AFTER 48 HOURS Resulted Laboratory Tests 11/19/18 12:15: Sodium Level 138, Potassium Level 4.4, Chloride Level 106, Carbon Dioxide Level 25, Anion Gap 7, Blood Urea Nitrogen 28H, Creatinine 1.8H, Estimat Glomerular Filtration Rate , Glucose Level 101, Calcium Level 8.3L 11/20/18 05:50: Sodium Level [Pending], Potassium Level [Pending], Chloride Level [Pending], Carbon Dioxide Level [Pending], Blood Urea Nitrogen [Pending], Creatinine [ Pending], Estimat Glomerular Filtration Rate [Pending], Glucose Level [Pending] , Calcium Level [Pending] Current Medications Medications (Trade) Dose Ordered Sig/Danny Route PRN Reason Start Time Stop Time Status Last Admin Dose Admin Acetaminophen (Tylenol) 650 mg Q6H PRN ORAL Mild Pain/Temp > 100.5 11/17/18 17:45 12/17/18 17:44 Acetaminophen/ Hydrocodone Bitart ([place] 10/325) 1 tab Q4H PRN ORAL Moderate Pain (Pain Scale 4-6) 11/17/18 17:45 11/24/18 17:44 11/19/18 21:30 Allopurinol (Zyloprim) 100 mg DAILY ORAL 11/18/18 09:00 12/18/18 08:59 11/19/18 08:04 Atenolol (Tenormin) 100 mg DAILY ORAL 11/18/18 09:00 12/18/18 08:59 11/19/18 08:13 Clonidine HCl (Catapres Tab) 0.1 mg Q4H PRN ORAL SBP > 170mmHg 11/17/18 18:30 12/17/18 17:44 Colchicine (Colchicine) 0.6 mg DAILY ORAL 11/18/18 09:00 12/18/18 08:59 11/19/18 08:04 Heparin Sodium (Porcine) (Heparin 5000 units/ml) 5,000 units EVERY 12 HOURS SUBQ 11/17/18 21:00 12/17/18 20:59 11/19/18 08:18 Pantoprazole (Protonix) 40 mg DAILY ORAL 11/18/18 09:00 12/18/18 08:59 11/19/18 08:04 Tamsulosin HCl (Flomax) 0.4 mg BEDTIME ORAL 11/17/18 21:00 12/17/18 20:59 11/19/18 21:29 Garrett Cook MD Nov 20, 2018 07:13
[2018-11-20 07:19] LABS: ANION GAP 9 mmol/L (5-15); BLOOD UREA NITROGEN 30 mg/dL (7-18); CALCIUM 8.5 MG/DL (8.5-10.1); CARBON DIOXIDE 26 MMOL/L (21-32); CHLORIDE 105 MMOL/L (98-107); CREATININE 1.9 MG/DL (0.55-1.30); POTASSIUM 4.7 MMOL/L (3.5-5.1); SODIUM 139 MMOL/L (136-145)
--- NOTE | 2018-11-20 07:27 | NUR ---
NURSE NOTES: pt in bed with no sob nor in any form of distress noted. Denies any pain at this time. bed in lowest position. call light within reach at all time.
[2018-11-20 08:00] VITALS: BP 124/47
--- NOTE | 2018-11-20 08:04 | Nephrology Progress Note ---
Assessment/Plan Assessment/Plan A/P 1) LATASHA oN CKD 3B- Cr at 1.9 - Toradol stopped - IVFs x 1 L 1/2 NS - conservative mgmt 2) A 12 mm calcification projects posterior to the bladder on the right. This is in the expected region of the right ureteral orifice, and the right ureter does appear to lead into it. However, there is no evidence of hydronephrosis or hydroureter on the right - per Urology to evaluate 3) Gout- allopurinol 4) Met Prostate CA with back pain- per PCP 5) HTN- stable Subjective Date patient seen: Nov 20, 2018 Time patient seen: 08:00 ROS Limited/Unobtainable: No Allergies: Coded Allergies: No Known Allergies (Unverified , 11/17/18) Subjective Patient feeling better. Says back pain improved Objective Last 24 Hour Vital Signs Date Time Temp Pulse Resp B/P (MAP) Pulse Ox O2 Delivery O2 Flow Rate FiO2 11/20/18 04:00 98.6 96 18 148/65 (92) 98 11/19/18 21:00 Room Air 11/19/18 20:00 98.8 96 20 149/85 (106) 98 11/19/18 18:10 97.9 11/19/18 16:00 98.0 64 18 140/68 (92) 98 11/19/18 12:00 97.9 60 18 145/70 (95) 99 11/19/18 09:00 Room Air 11/19/18 08:34 98.0 11/19/18 08:13 66 143/60 Intake and Output 11/19/18 11/20/18 18:59 06:59 Intake Total 880 ml 1200 ml Output Total 800 ml Balance 880 ml 400 ml Intake Oral 880 ml 1200 ml Output Urine Total 800 ml # Voids 7 3 # Bowel Movements 2 Laboratory Tests 11/19/18 12:15: Sodium Level 138, Potassium Level 4.4, Chloride Level 106, Carbon Dioxide Level 25, Anion Gap 7, Blood Urea Nitrogen 28H, Creatinine 1.8H, Estimat Glomerular Filtration Rate , Glucose Level 101, Calcium Level 8.3L 11/20/18 05:50: Sodium Level 139, Potassium Level 4.7, Chloride Level 105, Carbon Dioxide Level 26, Anion Gap 9, Blood Urea Nitrogen 30H, Creatinine 1.9H, Estimat Glomerular Filtration Rate , Glucose Level 105, Calcium Level 8.5 Height (Feet): 5 Height (Inches): 10.00 Weight (Pounds): 270 General Appearance: no apparent distress, alert EENT: normal ENT inspection Neck: normal alignment, supple Cardiovascular: normal rate, regular rhythm Respiratory/Chest: lungs clear, normal breath sounds Abdomen: non tender, soft Edema: no edema noted Arm (L), no edema noted Arm (R), no edema noted Leg (L), no edema noted Leg (R), no edema noted Pedal (L), no edema noted Pedal (R), no edema noted Generalized Jessee Crews MD Nov 20, 2018 08:04
[2018-11-20] MEDS: Allopurinol 100mg Tab ORAL SCH (08:15)
[2018-11-20] MEDS: Heparin 5000 units/ml inj SUBQ SCH ×2 (08:16→21:00)
[2018-11-20 12:00] VITALS: BP 118/70
--- NOTE | 2018-11-20 14:54 | General Progress Note ---
Assessment/Plan Assessment/Plan S: I am feeling better O: pain is well managed PHYSICAL EXAMINATION:HEAD AND NECK: Atraumatic and normocephalic. CHEST: Clear to auscultation. HEART: S1, S2. Regular rate and rhythm. ABDOMEN: Soft, no organomegaly. MUSCULOSKELETAL: Decreased ROM of LE secondary to pain NEUROLOGY: Awake, alert, and oriented x3. Meds: reviewed and reconciled in the chart , including colchicine ASSESSMENT AND PLAN: 1. Acute on chronic low back pain. Differential diagnosis including metastatic prostate CA. Severe Spinal Stenosis 2. Multiple osteoblastic osseous lesions in the lumbar spine suspicious of metastatic process in this patient with a history of prostate cancers, the possibility of metastasis cannot be excluded. 3. Compression deformity fractures at L2-age indeterminate. 4. Sever Spinal Stenosis 4. Microscopic hematuria. 5. Anemia. 6. Renal failure - age indeterminate. 7. Gastrointestinal and deep vein thrombosis prophylaxis. Plan: Notes from pulmonary reviewed PT.OT consulted Pain management Oncology management, deferred to established primary out patient provider Proceed with ARU evaluation Pending Renal US Avoid nephrotoxic medication s Subjective Allergies: Coded Allergies: No Known Allergies (Unverified , 11/17/18) Objective Last 24 Hour Vital Signs Date Time Temp Pulse Resp B/P (MAP) Pulse Ox O2 Delivery O2 Flow Rate FiO2 11/20/18 12:00 98.7 61 17 118/70 (86) 97 11/20/18 09:00 Room Air 11/20/18 08:15 67 124/47 11/20/18 08:00 98.2 67 18 124/47 (72) 97 11/20/18 04:00 98.6 96 18 148/65 (92) 98 11/19/18 21:00 Room Air 11/19/18 20:00 98.8 96 20 149/85 (106) 98 11/19/18 18:10 97.9 11/19/18 16:00 98.0 64 18 140/68 (92) 98 Intake and Output 11/19/18 11/20/18 18:59 06:59 Intake Total 880 ml 1200 ml Output Total 800 ml Balance 880 ml 400 ml Intake Oral 880 ml 1200 ml Output Urine Total 800 ml # Voids 7 3 # Bowel Movements 2 Laboratory Tests 11/20/18 05:50: Sodium Level 139, Potassium Level 4.7, Chloride Level 105, Carbon Dioxide Level 26, Anion Gap 9, Blood Urea Nitrogen 30H, Creatinine 1.9H, Estimat Glomerular Filtration Rate , Glucose Level 105, Calcium Level 8.5 Height (Feet): 5 Height (Inches): 10.00 Weight (Pounds): 270 Hitesh Summers MD Nov 20, 2018 14:54
--- NOTE | 2018-11-20 14:57 | Diagnostic Imaging Report ---
Indication: Abnormal renal function tests Technique: Grayscale and duplex images of the kidneys, retroperitoneum, and bladder were obtained. Comparison: No comparison sonograms. Reference made to abdomen pelvis CT 11/17/2018 Findings: Right kidney measures 9.3 cm in length. Left kidney measures 11.2 cm in length. Both kidneys demonstrate normal echogenicity. No hydronephrosis. Left kidney demonstrates an echogenic nonshadowing focus in the interpolar region, corresponding in position to the hyperattenuating abnormality described on recent CT no focal abnormality on the right. Normal inferior vena cava. Bladder is normal. . The prostate is enlarged, somewhat lobulated, protrudes into the floor the bladder. Impression: Negative for hydronephrosis Left renal calcification, probably a parenchymal calcification correlating to finding reported on recent CT scan or Enlarged lobulated prostate protruding into the bladder floor, probably on the basis of prostatomegaly but neoplasm not excludable.
[2018-11-20 16:00] VITALS: BP 148/66
[2018-11-20] MEDS: HYDROcodone/Acetamin 10/325 tab ORAL PRN ×2 (16:43→21:22)
--- NOTE | 2018-11-20 19:18 | NUR ---
HAND-OFF: Report given to PERCY Sexton.
--- NOTE | 2018-11-20 19:30 | NUR ---
NURSE NOTES: Patient awake in bed, just had a large formed BM, not in acute respiratory distress. Helped and cleaned patient. Instructed the use of call light. Call light and needs in reach. Bed in lowest position, lock engaged and alarm on. Will continue to monitor.
[2018-11-20 20:00] VITALS: BP 121/51
[2018-11-20] MEDS: Tamsulosin 0.4mg cap ORAL SCH (21:21)
--- NOTE | 2018-11-20 22:45 | Consultation ---
DATE OF CONSULTATION: 11/20/2018 PHYSICAL MEDICINE AND REHABILITATION CONSULTATION CONSULTING PHYSICIAN: Claude Contreras M.D. REQUESTING PHYSICIAN: Hitesh Summers M.D. SECURITY ENGINEER: Garrett Fleming M.D. CENTER RECEPTIONIST: Jessee Rubin M.D. CHIEF COMPLAINT: Difficulty with ambulation, activity of daily living in a patient with metastatic prostate cancer with acute L2 compression fracture. HISTORY OF PRESENT ILLNESS: The patient is an 82-year-old male with history of prostate cancer, status post prostatectomy and radiation therapy in the past, apparently has been living at home with his in a modified independent level of function, which has had difficulty with his balance, had a fall while using the bathroom, and was brought to the emergency room at [facility] with complaint of severe low back pain and bilateral lower limb weakness. CT scan of the lumbar spine revealed L2 compression fracture at L4-L5 spinal stenosis as well as multiple abnormal blastic region in the spine indicating metastatic disease, representing prostate carcinoma. The patient also had abdomen and pelvis CT scan and renal ultrasound. Renal ultrasound reported negative for hydronephrosis. The patient had abnormal renal function, creatinine up to 1.9, which was seen by chief radiologic technologist, the diagnosis of acute kidney injury on chronic kidney disease. Some abnormality noted in the bladder area on CT of the abdomen with 12 mm calcification posterior to the bladder on the right side that chief radiologic technologist defer this to urologist to evaluate. I was asked today to evaluate the patient for rehabilitation. The patient has significant difficulty with his functionality and difficulty with gait and ADLs. He has low back pain, bilateral lower limb pain, numbness, tingling, and weakness. He denies any incontinence of bowel and bladder. He is voiding in urinal and apparently had a bowel movement. Apparently, the patient had a small bilateral pleural effusion and pulmonary atelectasis, which was seen by home health rn. PAST MEDICAL AND SURGICAL HISTORY: 1. History of prostate cancer and prostatectomy and radiation therapy, metastatic prostate cancer. 2. History of gouty arthritis. 3. Hypertension. ALLERGIES: Not known drug allergies. MEDICATIONS: Allopurinol 100 mg daily, atenolol 100 milligram daily, Protonix 40 mg daily, Flomax 0.4 mg at bedtime, heparin subcutaneous 5000 units b.i.d., clonidine p.r.n., [place] p.r.n., and Tylenol p.r.n. FAMILY AND SOCIAL HISTORY: The patient is . He lives with his . He is father of 3. His also is at [facility] at this time. 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 History of tobacco over 40 years ago, which he quit at that time. He lives in an apartment with two steps to enter. Prior level of function was independent to modified independent level of function for ambulation activity of daily living with usage of cane or walker prior to his admission. Family history is positive for hypertension. Current level of function requires moderate to maximal assistance for [id number], moderate to maximum assist for [id number], and moderate assistance for rolling. REVIEW OF SYSTEMS: CONSTITUTIONAL: No chills or fever. EYES: Denies diplopia. ENT: Denies dysphagia. CARDIOVASCULAR: No chest pain. PULMONARY: No shortness of breath. GASTROINTESTINAL: No abdominal pain. GENITOURINARY: Bladder frequency and prostate cancer. INTEGUMENTARY: No cancerous lesion. MUSCULOSKELETAL: Low back pain and leg pain. NEUROLOGIC: Weakness of both legs. PHYSICAL EXAMINATION: VITAL SIGNS: Blood pressure 140/60, respiratory rate 18 per minute, heart rate 64 per minute, temperature 98 degrees Fahrenheit, O2 saturation 97%. Height is 178 cm and weight is 123 kg. Body mass index 38.7. GENERAL: No acute distress. HEENT: Extraocular movement intact. No facial droop. NECK: Supple with no lymphadenopathy. HEART: Regular rhythm and rate. LUNGS: Clear to auscultation bilateral. ABDOMEN: Soft, nontender, and nondistended. Normal bowel sounds with no palpable abnormal mass. EXTREMITIES: No pitting edema. No calf tenderness. No clubbing or cyanosis. SKIN: No rashes. BACK: Tenderness over the bilateral paraspinal and lumbar spine area. NEUROLOGIC: The patient is alert, awake, and oriented. Movement of bilateral upper limb antigravity. Movement of bilateral lower limb movement with weakness close to antigravity at the level of 2 to 3/5. Sensation impaired to bilateral lower limb in a patchy distribution. LABORATORY AND DIAGNOSTIC DATA: Sodium 139, potassium 4.7, BUN 30, creatinine 1.9, glucose 105. PSA 18.98. WBC 4.3, hemoglobin 10.2, and platelets 130,000. Urine tox screen on admission negative. Blood culture negative. ASSESSMENT: The patient is an 82-year-old male with: 1. Metastatic prostate cancer to the spine. 2. Lumbar spinal stenosis at the level of L4-L5. 3. L2 compression fracture. 4. Low back pain. 5. Limb pain. 6. Limb numbness. 7. Paraparesis. 8. Gait abnormality. 9. Debility and functional decline. 10. Gouty arthritis. 11. Hypertension. 12. Acute kidney injury on chronic kidney disease. 13. Anemia. RECOMMENDATIONS: This patient will benefit from physical therapy, occupational therapy, and 24 hours nursing care. The patient requires spine surgery evaluation and recommendation. Lumbosacral corset is warranted, I will order it. Lidoderm patch to be applied to the back area. Pain Management per primary care physician. Anesthesiologist Pain Management physician specialist will be warranted. Physical therapy for range of motion, transfer training, endurance, balance and gait training, fall prevention with appropriate assistive device. Occupational therapy for activities of daily living equipment, functional transfer evaluation and training, upper extremity range of motion and strengthening exercise. Nursing for evaluation of his bowel and bladder, medication regimen and skin care, prevention of pressure ulcer, and patient and family education. The patient is on heparin subcutaneous for DVT prophylaxis. Monitor bowel and bladder. Bladder scan. Bowel program. Fall precaution, pressure ulcer precaution, spine precaution, and cardiac precaution. Acute inpatient rehabilitation placement is warranted when the patient is medically stable and workup is completed. Continue medical management per medicine. Thank you for consultation. Claude Contreras M.D. DR: MAX JOB#: [id number] CC:
[2018-11-21] VITALS: BP 132/57
[2018-11-21 04:00] VITALS: BP 125/88
[2018-11-21 06:56] LABS: POTASSIUM 4.6 MMOL/L (3.5-5.1); SODIUM 139 MMOL/L (136-145)
[2018-11-21 06:57] LABS: ANION GAP 6 mmol/L (5-15); BLOOD UREA NITROGEN 34 mg/dL (7-18); CALCIUM 8.1 MG/DL (8.5-10.1); CARBON DIOXIDE 27 MMOL/L (21-32); CHLORIDE 106 MMOL/L (98-107)
--- NOTE | 2018-11-21 07:39 | NUR ---
HAND-OFF: Report given to PERCY Miller.
--- NOTE | 2018-11-21 07:52 | NUR ---
NURSE NOTES: pt in bed with no sob nor in any form of distress noted. Able to verbalized needs. bed in lowest position. Call light within reach at all time. will continue to monitor
[2018-11-21 08:00] VITALS: BP 144/59
[2018-11-21] MEDS: HYDROcodone/Acetamin 10/325 tab ORAL PRN ×2 (08:10→18:15)
[2018-11-21] MEDS: Allopurinol 100mg Tab ORAL SCH (08:10)
[2018-11-21] MEDS: Heparin 5000 units/ml inj SUBQ SCH ×2 (08:11→21:00)
--- NOTE | 2018-11-21 11:55 | Nephrology Progress Note ---
Assessment/Plan Assessment/Plan A/P 1) LATASHA oN CKD 3B- Cr at 1.9 - Toradol stopped. Cr up to 2 - Check Bladder scan for retention - Renal US with left renal calcification, probably a parenchymal calcification correlating to finding reported on recent CT scan - would avoid MRI with Gadolinium due to low eGFR and risk of nephrogenic systemic fibrosis 2) Gout- allopurinol 3) Met Prostate CA with back pain- per PCP 4) HTN- stable Subjective Date patient seen: Nov 21, 2018 Time patient seen: 11:50 ROS Limited/Unobtainable: No Allergies: Coded Allergies: No Known Allergies (Unverified , 11/17/18) Subjective Patient feeling better. Says back pain improved but still 5/10 Objective Last 24 Hour Vital Signs Date Time Temp Pulse Resp B/P (MAP) Pulse Ox O2 Delivery O2 Flow Rate FiO2 11/21/18 09:00 Room Air 11/21/18 08:40 98.7 11/21/18 08:09 65 144/59 11/21/18 08:00 98.4 65 17 144/59 (87) 99 11/21/18 04:00 98.7 71 17 125/88 (100) 96 11/21/18 00:00 98.1 60 18 132/57 (82) 96 11/20/18 21:00 Room Air 11/20/18 20:00 98.2 61 18 121/51 (74) 97 11/20/18 16:00 98.9 64 18 148/66 (93) 97 11/20/18 12:00 98.7 61 17 118/70 (86) 97 Intake and Output 11/20/18 11/21/18 19:00 07:00 Intake Total 675 ml 2224 ml Output Total 1105 ml Balance 675 ml 1119 ml Intake Oral 400 ml IV Total 675 ml 824 ml Other 1000 ml Output Urine Total 1105 ml # Voids 5 # Bowel Movements 2 Laboratory Tests 11/21/18 06:00: Sodium Level 139, Potassium Level 4.6, Chloride Level 106, Carbon Dioxide Level 27, Anion Gap 6, Blood Urea Nitrogen 34H, Creatinine 2.0H, Estimat Glomerular Filtration Rate , Glucose Level 106, Calcium Level 8.1L Height (Feet): 5 Height (Inches): 10.00 Weight (Pounds): 270 General Appearance: no apparent distress, alert EENT: normal ENT inspection Neck: normal alignment, supple Cardiovascular: normal rate, regular rhythm Respiratory/Chest: lungs clear, normal breath sounds, no respiratory distress Abdomen: non tender, soft Edema: no edema noted Arm (L), no edema noted Arm (R), no edema noted Leg (L), no edema noted Leg (R), no edema noted Pedal (L), no edema noted Pedal (R), no edema noted Generalized Jessee Crews MD Nov 21, 2018 11:55
[2018-11-21 12:00] VITALS: BP 136/63
--- NOTE | 2018-11-21 14:26 | General Progress Note ---
Assessment/Plan Status: stable Assessment/Plan S: I am feeling better O: pain is well managed PHYSICAL EXAMINATION:HEAD AND NECK: Atraumatic and normocephalic. CHEST: Clear to auscultation. HEART: S1, S2. Regular rate and rhythm. ABDOMEN: Soft, no organomegaly. MUSCULOSKELETAL: Decreased ROM of LE secondary to pain NEUROLOGY: Awake, alert, and oriented x3. Meds: reviewed and reconciled in the chart , including colchicine ASSESSMENT AND PLAN: 1. Acute on chronic low back pain. Differential diagnosis including metastatic prostate CA. Severe Spinal Stenosis 2. Multiple osteoblastic osseous lesions in the lumbar spine suspicious of metastatic process in this patient with a history of prostate cancers, the possibility of metastasis cannot be excluded. 3. Compression deformity fractures at L2-age indeterminate. 4. Sever Spinal Stenosis 4. Microscopic hematuria. 5. Anemia. 6. Renal failure - age indeterminate. 7. Gastrointestinal and deep vein thrombosis prophylaxis. Plan: Notes from pulmonary reviewed PT.OT consulted Pain management Oncology management, deferred to established primary out patient provider Proceed with ARU evaluation Pending Renal US Avoid nephrotoxic medications Will proceed with MRI LS, NO contrast- secondary to ARF Subjective Allergies: Coded Allergies: No Known Allergies (Unverified , 11/17/18) Objective Last 24 Hour Vital Signs Date Time Temp Pulse Resp B/P (MAP) Pulse Ox O2 Delivery O2 Flow Rate FiO2 11/21/18 12:00 97.5 57 17 136/63 (87) 99 11/21/18 09:00 Room Air 11/21/18 08:40 98.7 11/21/18 08:09 65 144/59 11/21/18 08:00 98.4 65 17 144/59 (87) 99 11/21/18 04:00 98.7 71 17 125/88 (100) 96 11/21/18 00:00 98.1 60 18 132/57 (82) 96 11/20/18 21:00 Room Air 11/20/18 20:00 98.2 61 18 121/51 (74) 97 11/20/18 16:00 98.9 64 18 148/66 (93) 97 Intake and Output 11/20/18 11/21/18 18:59 06:59 Intake Total 600 ml 2299 ml Output Total 1105 ml Balance 600 ml 1194 ml Intake Oral 400 ml IV Total 600 ml 899 ml Other 1000 ml Output Urine Total 1105 ml # Voids 5 # Bowel Movements 2 Laboratory Tests 11/21/18 06:00: Sodium Level 139, Potassium Level 4.6, Chloride Level 106, Carbon Dioxide Level 27, Anion Gap 6, Blood Urea Nitrogen 34H, Creatinine 2.0H, Estimat Glomerular Filtration Rate , Glucose Level 106, Calcium Level 8.1L Height (Feet): 5 Height (Inches): 10.00 Weight (Pounds): 270 Hitesh Summers MD Nov 21, 2018 14:26
--- NOTE | 2018-11-21 14:58 | NUR ---
MRI LUMBAR COMPLETED.
[2018-11-21 16:00] VITALS: BP 130/77
--- NOTE | 2018-11-21 16:18 | Diagnostic Imaging Report ---
Indication: Severe low back pain, history of prostate carcinoma, abnormal recent CT scan Technique: Sagittal T1 and T2 fast spin echo, sagittal STIR, axial T1 and T2 fast spin-echo images of the lumbar spine. No IV contrast utilized, per patient request Comparison: Reference made to CT scan dated 11/17/2017 Findings: There is slight anterior loss of height of the L2 vertebral body, estimated at 1020%, with slightly greater depression of the superior endplate, also described on recent CT. The STIR and the T1 images demonstrate a moderate amount of edema within the vertebral body. There is no evidence of posterior retropulsion The remaining vertebral body heights are preserved. Numerous lesions are seen throughout the spine. These are mostly low signal on the T1-weighted images, mixed signal on the T2-weighted images. On the STIR images, some of these are high in signal, a few are low (likely signifying severe osteoblastic reaction) and some are not visible. These are seen in the sacrum and to some extent the posterior elements, as well as the vertebral bodies. Lesions are also seen in the included portions of the iliac bones There is a slight degree of edema within the L1 vertebral body outside of the apparent area of metastatic deposit. There is a subtle slight superior endplate depression which is in retrospect also evident on the prior CT scan. The superior endplate of the T12 vertebral body demonstrates what appears to be a large Schmorl's node on CT, but appearance of this is more suggestive of a metastatic deposit on the current exam. There is slight anterior offset of L4 on L5. Remaining bony alignment is normal. The remaining vertebral body heights are preserved. The conus medullaris terminates at the L1 level. At L2-3, there is mild circumferential annular bulge. This does not significantly narrow the spinal canal. The neural foramina are preserved. At L3-4, there is minimal circumferential annular bulge, which does not significantly narrow the spinal canal. The neural foramina are preserved. At L4-5, mild to moderate narrowing of the spinal canal results from the alignment abnormality, circumferential annular bulge, and facet and ligamentum flavum hypertrophy. There is also mild narrowing of the bilateral neural foramina at this level. The disc is narrowed at this level At L5-S1, there is circumferential annular bulge. This results in mild narrowing of the spinal canal, and mild compromise of the bilateral neural foramina. Impression: Superior endplate and anterior compression fracture deformity of the L2 vertebral body, presumably a pathologic fracture. Presence of marrow edema indicates this is acute. This may be amenable to percutaneous kyphoplasty if clinically indicated. Equivocal very slight superior endplate compression deformity of the L1 vertebral body, with slight underlying marrow edema. Evidence of disseminated metastatic disease, consistent with known history of metastatic prostate carcinoma Degenerative changes, as detailed on a level by level basis above
--- NOTE | 2018-11-21 16:46 | Consultation ---
History of Present Illness General Date patient seen: Nov 21, 2018 Chief Complaint: Present Illness Allergies: Coded Allergies: No Known Allergies (Unverified , 11/17/18) Medication History Scheduled Allopurinol* (Allopurinol*), 100 MG ORAL DAILY, (Reported) Atenolol* (Tenormin*), 100 MG ORAL DAILY, (Reported) Nifedipine (Nifedipine*), 20 MG ORAL EVERY 8 HOURS, (Reported) Tamsulosin Hcl (Tamsulosin Hcl*), 0.4 MG ORAL BEDTIME, (Reported) Miscellaneous Medications Colchicine (Mitigare), 0.6 MG PO, (Reported) Patient History Healthcare decision maker N Resuscitation status Full Code Advanced Directive on File Physical Exam Last 24 Hour Vital Signs Date Time Temp Pulse Resp B/P (MAP) Pulse Ox O2 Delivery O2 Flow Rate FiO2 11/21/18 12:00 97.5 57 17 136/63 (87) 99 11/21/18 09:00 Room Air 11/21/18 08:40 98.7 11/21/18 08:09 65 144/59 11/21/18 08:00 98.4 65 17 144/59 (87) 99 11/21/18 04:00 98.7 71 17 125/88 (100) 96 11/21/18 00:00 98.1 60 18 132/57 (82) 96 11/20/18 21:00 Room Air 11/20/18 20:00 98.2 61 18 121/51 (74) 97 Intake and Output 11/20/18 11/21/18 18:59 06:59 Intake Total 600 ml 2299 ml Output Total 1105 ml Balance 600 ml 1194 ml Intake Oral 400 ml IV Total 600 ml 899 ml Other 1000 ml Output Urine Total 1105 ml # Voids 5 # Bowel Movements 2 Laboratory Tests Test 11/21/18 06:00 Sodium Level 139 MMOL/L (136-145) Potassium Level 4.6 MMOL/L (3.5-5.1) Chloride Level 106 MMOL/L (98-107) Carbon Dioxide Level 27 MMOL/L (21-32) Anion Gap 6 mmol/L (5-15) Blood Urea Nitrogen 34 mg/dL (7-18) H Creatinine 2.0 MG/DL (0.55-1.30) H Estimat Glomerular Filtration Rate mL/min (>60) Glucose Level 106 MG/DL (74-106) Calcium Level 8.1 MG/DL (8.5-10.1) L Height (Feet): 5 Height (Inches): 10.00 Weight (Pounds): 270 Medications Current Medications Medications (Trade) Dose Ordered Sig/Danny Route PRN Reason Start Time Stop Time Status Last Admin Dose Admin Acetaminophen (Tylenol) 650 mg Q6H PRN ORAL Mild Pain/Temp > 100.5 11/17/18 17:45 12/17/18 17:44 Acetaminophen/ Hydrocodone Bitart ([place] 10/325) 1 tab Q4H PRN ORAL Moderate Pain (Pain Scale 4-6) 11/17/18 17:45 11/24/18 17:44 11/21/18 08:10 Allopurinol (Zyloprim) 100 mg DAILY ORAL 11/18/18 09:00 12/18/18 08:59 11/21/18 08:10 Atenolol (Tenormin) 100 mg DAILY ORAL 11/18/18 09:00 12/18/18 08:59 11/21/18 08:09 Clonidine HCl (Catapres Tab) 0.1 mg Q4H PRN ORAL SBP > 170mmHg 11/17/18 18:30 12/17/18 17:44 Heparin Sodium (Porcine) (Heparin 5000 units/ml) 5,000 units EVERY 12 HOURS SUBQ 11/17/18 21:00 12/17/18 20:59 11/21/18 08:11 Lidocaine (Lidoderm 5% PATCH) 2 patch QHS TDERMAL 11/20/18 21:00 12/20/18 20:59 11/20/18 21:22 Pantoprazole (Protonix) 40 mg DAILY ORAL 11/18/18 09:00 12/18/18 08:59 11/21/18 08:09 Tamsulosin HCl (Flomax) 0.4 mg BEDTIME ORAL 11/17/18 21:00 12/17/18 20:59 11/20/18 21:21 Assessment/Plan Assessment/Plan (1) Metastatic Prostate Cancer (2) Intractable back pain (3) Lumbar compression Fx seen dictated Taj Schwartz Nov 21, 2018 16:46
--- NOTE | 2018-11-21 16:46 | NUR ---
FISCAL ACCOUNTING CLERK NOTES PT DECLINED AT [facility] DUE TO PT RECEIVING CHEMOTHERAPY MEDICATION PER FAMILY. WILL NOTIFY
--- NOTE | 2018-11-21 17:06 | General Progress Note ---
Progress Note Progress Note REHAB F/U PROGRESS NOTE: SUBJECTIVE: AWAKE AT BED LOW BACK >> BETTER CONTROL +BM PACHECO IN PER PT >> Rolling * Moderate Assistance Supine to Sit * Moderate Assistance Bed Mobility Assistive Devices * Bed Rail Bed Mobility Comments * Patient required verbal cues for proper hand and foot placement to observe proper log rolling techniques and to improve ease of mobility. Sit to Stand * Maximum Assistance * Moderate Assistance Bed to Chair/Wheelchair * Maximum Assistance * Moderate Assistance Transfer assistive devices * Front wheel walker PAST MEDICAL AND SURGICAL HISTORY: 1. History of prostate cancer and prostatectomy and radiation therapy, metastatic prostate cancer. 2. History of gouty arthritis. 3. Hypertension. ALLERGIES: Not known drug allergies. MEDICATIONS: PER CHART. NOTED. FAMILY AND SOCIAL HISTORY: The patient is . He lives with his . He is father of 3. His also is at [facility] at this time. 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 History of tobacco over 40 years ago, which he quit at that time. He lives in an apartment with two steps to enter. Prior level of function was independent to modified independent level of function for ambulation activity of daily living with usage of cane or walker prior to his admission. Family history is positive for hypertension. REVIEW OF SYSTEMS: EYES: Denies diplopia. ENT: Denies dysphagia. CARDIOVASCULAR: No chest pain. PULMONARY: No shortness of breath. GASTROINTESTINAL: No abdominal pain. GENITOURINARY: PACHECO. MUSCULOSKELETAL: Low back pain and leg pain. NEUROLOGIC: Weakness of both legs. PHYSICAL EXAMINATION: VITAL SIGNS: PER CHART, NOTED. HEENT: No facial droop. NECK: Supple HEART: Regular rhythm and rate. LUNGS: Clear to auscultation bilateral. ABDOMEN: Soft, nontender, and nondistended. Normal bowel sounds EXTREMITIES: No pitting edema. No calf tenderness. No clubbing, cyanosis. BACK: Tenderness over the bilateral paraspinal and lumbar spine area. NEUROLOGIC: The patient is alert, awake, . Movement of bilateral upper limb antigravity. Movement of bilateral lower limb movement with weakness close to antigravity at the level of 2 to 3/5. Sensation impaired to bilateral lower limb in a patchy distribution. LABORATORY AND DIAGNOSTIC DATA: MRI L SPINE >> Impression: Superior endplate and anterior compression fracture deformity of the L2 vertebral body, presumably a pathologic fracture. Presence of marrow edema indicates this is acute. This may be amenable to percutaneous kyphoplasty if clinically indicated. Equivocal very slight superior endplate compression deformity of the L1 vertebral body, with slight underlying marrow edema. Evidence of disseminated metastatic disease, consistent with known history of metastatic prostate carcinoma Degenerative changes, as detailed on a level by level basis above Blood culture negative. ASSESSMENT: The patient is an 82-year-old male with: 1. Metastatic prostate cancer to the spine. 2. Lumbar spinal stenosis at the level of L4-L5. 3. L2 compression fracture. 4. Low back pain. 5. Limb pain. 6. Limb numbness. 7. Paraparesis. 8. Gait abnormality. 9. Debility and functional decline. 10. Gouty arthritis. 11. Hypertension. 12. Acute kidney injury on chronic kidney disease. 13. Anemia. RECOMMENDATIONS: 24 hours nursing care. The patient requires spine surgery evaluation and recommendation. D/W PMD. Lumbosacral corset Lidoderm patch to be applied to the back area. Pain Management per Anesthesiologist Pain Management physician specialist. Physical therapy for range of motion, transfer training, endurance, balance and gait training, fall prevention with appropriate assistive device. Occupational therapy for activities of daily living equipment, functional transfer training, upper extremity range of motion and strengthening exercise. Nursing for his bowel and bladder, medication regimen and skin care, prevention of pressure ulcer, and patient and family education. heparin subcutaneous for DVT prophylaxis. Bowel program. Fall precaution, pressure ulcer precaution, spine precaution, and cardiac precaution. Acute inpatient rehabilitation placement when the patient is medically stable and workup is completed. Continue medical management per medicine. D/W DR. EVANGELISTA. Claude Contreras MD Nov 21, 2018 17:06
--- NOTE | 2018-11-21 18:35 | NUR ---
NURSE NOTES: pt noted to have straw color urine in laird catheter.pt denies any pain nor discomfort. Dr. Coe notified of pt's condition. Per Dr. Coe, trauma laird insertion likely and just want to monitor over night. Received flush laird as needed.
--- NOTE | 2018-11-21 19:09 | NUR ---
HAND-OFF: Report given to PERCY Sexton.
--- NOTE | 2018-11-21 19:33 | NUR ---
NURSE NOTES: Patient asleep in bed, no signs of pain. Not in acute respiratory distress. Call light and needs in reach. Bed in lowest position, lock engaged and alarm on. Will continue to monitor.
[2018-11-21 20:00] VITALS: BP 158/63
--- NOTE | 2018-11-21 20:15 | Consultation ---
DATE OF CONSULTATION: 11/21/2018 PAIN MANAGEMENT CONSULTATION CONSULTING PHYSICIAN: Azeb Craig M.D. REFERRING PHYSICIAN: 1. Hitesh Summers M.D. 2. Diane PHYSICIAN SOLO MUSICIAN: ARIEL Roy. CHIEF COMPLAINT: Back pain. HISTORY OF PRESENT ILLNESS: This is an 82-year-old male who is being seen in the med/surg floor of [facility] for initial pain management consultation. The patient was admitted under the care of Dr. Summers complaining of lower back pain after a fall, had a history of prostate cancer, now found to have metastasized to the lower back. Upon admission, CT scan of lumbar spine was ordered showing patient having age indeterminate compression fracture, deformity of L2 vertebral body, numerous osteoblastic lesions representing prostatic prostate carcinoma, spinal stenosis at L4-L5. The patient recently had MRI of lumbar spine, found to be positive for severe endplate and anterior compression fracture deformity at L2 vertebral body, presumably pathologic fracture, presence of marrow edema indicates this is acute, equivocal of very slight superior endplate compression deformity of L1 vertebral body, evidence of disseminated metastatic disease consistent with known history of metastatic prostate cancer, degenerative changes noted. At this time, the patient is on [place] 10/325 one tablet every four hours as needed for pain as well was placed on lidocaine patch, two patches for his back pain. He is comfortable. Reporting his pain as 6/10 at this time. We were consulted so the patient would have adequate pain control while here in the hospital. PAST MEDICAL HISTORY: Again BPH, prostate cancer, gout, hypertension. PAST SURGICAL HISTORY: Prostate cancer resection. SOCIAL HISTORY: Denies smoking tobacco, drinking alcohol, or drug abuse. ALLERGIES: No known drug allergies. MEDICATIONS: Allopurinol, Tenormin, nifedipine, tamsulosin, colchicine. REVIEW OF SYSTEMS: Denies rash, fever, chills, sweating, dizziness, drowsiness, blurred vision, change in hearing or weight. No shortness of breath or chest pain. No nausea, vomiting, diarrhea, blood in stool or urine. No bowel or bladder incontinence. No dysuria. He is complaining of low back pain. PHYSICAL EXAMINATION: GENERAL: Alert, awake, and oriented. VITAL SIGNS: Blood pressure 137/63, heart rate 67, oxygen saturation 99%, respirations 18, and temperature is 97.5 degrees Fahrenheit. HEENT: PERRLA. NECK: Range of motion is full in all directions. No tenderness to paracervical muscles. No adenopathy. LUNGS: Decreased breath sounds bilaterally. HEART: Regular. ABDOMEN: Obese. BACK: Range of motion is decreased in flexion and extension with tenderness to paraspinal muscles. No tenderness to trapezius or rhomboid muscles. EXTREMITIES: Upper and lower extremity range of motion is decreased due to the patient's condition. No cyanosis. No clubbing. Sensory is decreased. Reflexes are not obtainable. No adenopathy. ASSESSMENT AND PLAN: This is a 82-year-old male with metastatic prostate cancer, intractable back pain, lumbar compression fracture. The patient will be continued on [place] and Lidoderm patch. The patient was discussed with Dr. Craig and Dr. Craig concurred. We recommend the patient to be seen by orthopedic spinal surgeon for any further intervention as per access services assistant. We will follow the patient. Thank you much for the courtesy of this consultation. Azeb Craig M.D. ARIEL Espinoza DR: Jerrod JOB#: [id number] CC: CAITLYN
[2018-11-21] MEDS: Tamsulosin 0.4mg cap ORAL SCH (21:39)
[2018-11-22] VITALS: BP 143/50
[2018-11-22 04:00] VITALS: BP 131/60
[2018-11-22] MEDS: HYDROcodone/Acetamin 10/325 tab ORAL PRN ×3 (05:09→13:55)
--- NOTE | 2018-11-22 06:46 | Pulmonology Progress Note ---
Assessment/Plan Assessment/Plan 1. Small bilateral pleural effusions. 2. Pulmonary atelectasis. 3. Prostate carcinoma with metastasis. 4. L3 compression fracture. DISCUSSION: At this point, the pulmonary atelectasis and effusions do not need any significant aggressive treatment. Continue fluid hydration given his elevated BUN and creatinine. Continue allopurinol for hyperuricemia DC Toradol Continue medications for pain relief. 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 Garrett Cook M.D. Subjective Interval Events: Seen by physiatry Constitutional: Reports: no symptoms HEENT: Repors: no symptoms Respiratory: Reports: no symptoms Cardiovascular: Reports: no symptoms Gastrointestinal/Abdominal: Reports: no symptoms Allergies: Coded Allergies: No Known Allergies (Unverified , 11/17/18) Objective Last 24 Hour Vital Signs Date Time Temp Pulse Resp B/P (MAP) Pulse Ox O2 Delivery O2 Flow Rate FiO2 11/22/18 04:00 98.8 63 20 131/60 (83) 98 11/22/18 00:00 98.6 58 20 143/50 (81) 98 11/21/18 21:00 Room Air 11/21/18 20:00 99.1 67 20 158/63 (94) 95 11/21/18 18:45 98.2 11/21/18 16:00 98.2 66 18 130/77 (94) 98 11/21/18 12:00 97.5 57 17 136/63 (87) 99 11/21/18 09:00 Room Air 11/21/18 08:09 65 144/59 11/21/18 08:00 98.4 65 17 144/59 (87) 99 Intake and Output 11/21/18 11/22/18 19:00 07:00 Intake Total 700 ml Output Total 1200 ml Balance -500 ml Intake Oral 700 ml Output Urine Total 1200 ml Bladder Scan Volume Amount 290 General Appearance: no acute distress HEENT: normocephalic Respiratory/Chest: chest wall non-tender, lungs clear Cardiovascular: normal peripheral pulses Abdomen: normal bowel sounds, soft, non tender Current Medications Medications (Trade) Dose Ordered Sig/Danny Route PRN Reason Start Time Stop Time Status Last Admin Dose Admin Acetaminophen (Tylenol) 650 mg Q6H PRN ORAL Mild Pain/Temp > 100.5 11/17/18 17:45 12/17/18 17:44 Acetaminophen/ Hydrocodone Bitart ([place] 10/325) 1 tab Q4H PRN ORAL Moderate Pain (Pain Scale 4-6) 11/17/18 17:45 11/24/18 17:44 11/22/18 05:09 Allopurinol (Zyloprim) 100 mg DAILY ORAL 11/18/18 09:00 12/18/18 08:59 11/21/18 08:10 Atenolol (Tenormin) 100 mg DAILY ORAL 11/18/18 09:00 12/18/18 08:59 11/21/18 08:09 Clonidine HCl (Catapres Tab) 0.1 mg Q4H PRN ORAL SBP > 170mmHg 11/17/18 18:30 12/17/18 17:44 Heparin Sodium (Porcine) (Heparin 5000 units/ml) 5,000 units EVERY 12 HOURS SUBQ 11/17/18 21:00 12/17/18 20:59 11/21/18 08:11 Lidocaine (Lidoderm 5% PATCH) 2 patch QHS TDERMAL 11/21/18 21:00 12/21/18 20:59 11/21/18 21:39 Pantoprazole (Protonix) 40 mg DAILY ORAL 11/18/18 09:00 12/18/18 08:59 11/21/18 08:09 Tamsulosin HCl (Flomax) 0.4 mg BEDTIME ORAL 11/17/18 21:00 12/17/18 20:59 11/21/18 21:39 Garrett Cook MD Nov 22, 2018 06:46
--- NOTE | 2018-11-22 07:36 | NUR ---
NURSE NOTES: PT AXOX4, CALM, RESTING IN BED. STATES HE HAS PAIN OF BACK, WENT DOWN FROM 8 TO 7. EDUCATED ON PRN SCHEDULE OF [place] 10/325MG Q4H NEEDED. PT VERBALIZED UNDERSTANDING. CALL LIGHT WITHIN REACH. WILL CONTINUE TO MONITOR.
--- NOTE | 2018-11-22 07:37 | NUR ---
HAND-OFF: Report given to PERCY Astudillo.
[2018-11-22 07:51] LABS: ANION GAP 8 mmol/L (5-15); BLOOD UREA NITROGEN 33 mg/dL (7-18); CALCIUM 8.8 MG/DL (8.5-10.1); CARBON DIOXIDE 25 MMOL/L (21-32); CHLORIDE 106 MMOL/L (98-107); CREATININE 1.7 MG/DL (0.55-1.30); POTASSIUM 4.6 MMOL/L (3.5-5.1); SODIUM 139 MMOL/L (136-145)
[2018-11-22 08:00] VITALS: BP 122/51
[2018-11-22] MEDS: Allopurinol 100mg Tab ORAL SCH (08:41)
[2018-11-22] MEDS: Heparin 5000 units/ml inj SUBQ SCH (08:41)
--- NOTE | 2018-11-22 08:52 | General Progress Note ---
Assessment/Plan Assessment/Plan (1) Metastatic Prostate Cancer (2) Intractable back pain (3) Lumbar compression Fx Patient to be continued on [place] and Lidoderm patch. D/w Dr. Craig and he concurred. Subjective Date patient seen: Nov 22, 2018 Time patient seen: 08:45 - am Allergies: Coded Allergies: No Known Allergies (Unverified , 11/17/18) Subjective Patient is in bed and showing no signs of pain which has been tolerated on the [place]. He has no new complaints at this time. Objective Last 24 Hour Vital Signs Date Time Temp Pulse Resp B/P (MAP) Pulse Ox O2 Delivery O2 Flow Rate FiO2 11/22/18 08:41 62 122/51 11/22/18 08:00 97.9 62 12 122/51 (74) 98 11/22/18 04:00 98.8 63 20 131/60 (83) 98 11/22/18 00:00 98.6 58 20 143/50 (81) 98 11/21/18 21:00 Room Air 11/21/18 20:00 99.1 67 20 158/63 (94) 95 11/21/18 18:45 98.2 11/21/18 16:00 98.2 66 18 130/77 (94) 98 11/21/18 12:00 97.5 57 17 136/63 (87) 99 11/21/18 09:00 Room Air Intake and Output 11/21/18 11/22/18 19:00 07:00 Intake Total 700 ml Output Total 1200 ml 1600 ml Balance -500 ml -1600 ml Intake Oral 700 ml Output Urine Total 1200 ml 1600 ml Bladder Scan Volume Amount 290 # Bowel Movements 1 Laboratory Tests 11/22/18 06:54: Sodium Level 139, Potassium Level 4.6, Chloride Level 106, Carbon Dioxide Level 25, Anion Gap 8, Blood Urea Nitrogen 33H, Creatinine 1.7H, Estimat Glomerular Filtration Rate , Glucose Level 117H, Calcium Level 8.8 Height (Feet): 5 Height (Inches): 10.00 Weight (Pounds): 215 General Appearance: no apparent distress, alert EENT: PERRL/EOMI, normal ENT inspection Neck: normal alignment, supple Cardiovascular: normal rate, regular rhythm Respiratory/Chest: lungs clear, normal breath sounds Abdomen: soft, no organomegaly Extremities: non-tender Edema: no edema noted Arm (L), no edema noted Arm (R), no edema noted Leg (L), no edema noted Leg (R), no edema noted Pedal (L), no edema noted Pedal (R), no edema noted Generalized Neurologic: alert, oriented x 3 Skin: warm/dry Taj Schwartz Nov 22, 2018 08:52
--- NOTE | 2018-11-22 08:55 | Nephrology Progress Note ---
Assessment/Plan Assessment/Plan A/P 1) LATASHA oN CKD 3B- Cr back to 1.7. OK for DC from renal point - Toradol stopped - Renal US with left renal calcification, probably a parenchymal calcification correlating to finding reported on recent CT scan - would avoid MRI with Gadolinium due to low eGFR and risk of nephrogenic systemic fibrosis 2) Gout- allopurinol 3) Met Prostate CA with back pain- per PCP 4) HTN- stable 5) Urinary retention- laidr placed and hematuria from trauma. Monitor Subjective Date patient seen: Nov 22, 2018 Time patient seen: 08:51 ROS Limited/Unobtainable: No Allergies: Coded Allergies: No Known Allergies (Unverified , 11/17/18) Subjective Patient feeling better. Awaiting DC to rehab Objective Last 24 Hour Vital Signs Date Time Temp Pulse Resp B/P (MAP) Pulse Ox O2 Delivery O2 Flow Rate FiO2 11/22/18 08:41 62 122/51 11/22/18 08:00 97.9 62 12 122/51 (74) 98 11/22/18 04:00 98.8 63 20 131/60 (83) 98 11/22/18 00:00 98.6 58 20 143/50 (81) 98 11/21/18 21:00 Room Air 11/21/18 20:00 99.1 67 20 158/63 (94) 95 11/21/18 18:45 98.2 11/21/18 16:00 98.2 66 18 130/77 (94) 98 11/21/18 12:00 97.5 57 17 136/63 (87) 99 11/21/18 09:00 Room Air Intake and Output 11/21/18 11/22/18 19:00 07:00 Intake Total 700 ml Output Total 1200 ml 1600 ml Balance -500 ml -1600 ml Intake Oral 700 ml Output Urine Total 1200 ml 1600 ml Bladder Scan Volume Amount 290 # Bowel Movements 1 Laboratory Tests 11/22/18 06:54: Sodium Level 139, Potassium Level 4.6, Chloride Level 106, Carbon Dioxide Level 25, Anion Gap 8, Blood Urea Nitrogen 33H, Creatinine 1.7H, Estimat Glomerular Filtration Rate , Glucose Level 117H, Calcium Level 8.8 Height (Feet): 5 Height (Inches): 10.00 Weight (Pounds): 215 General Appearance: no apparent distress, alert EENT: normal ENT inspection Neck: normal alignment, supple Cardiovascular: normal rate, regular rhythm Respiratory/Chest: lungs clear, normal breath sounds Abdomen: non tender, soft Edema: no edema noted Arm (L), no edema noted Arm (R), no edema noted Leg (L), no edema noted Leg (R), no edema noted Pedal (L), no edema noted Pedal (R), no edema noted Generalized Jessee Crews MD Nov 22, 2018 08:55
--- NOTE | 2018-11-22 09:46 | NUR ---
NURSE NOTES: PT WITH HEMATURIA. DR BULLARD MADE AWARE AND RN HELD HEPARIN DOSE FOR 0900HRS. PER DR BULLARD, WE WILL WAIT TO D/C PACHE[place] UNTIL HEMATURIA CLEARS.
[2018-11-22 12:00] VITALS: BP 136/60
--- NOTE | 2018-11-22 13:25 | NUR ---
CHARGE NURSE NOTES: TOOL AND DIE MAKER/DESIGNER NOTIFIED OF LUMBAR CORSET, PER [place] WILL BE ORDERED TODAY. WILL CONTINUE TO MONITOR.
--- NOTE | 2018-11-22 13:47 | NUR ---
*-* DISCHARGE PLANNING *-* PATIENT HAS BEEN REFERRED TO: [facility] P:[phone] F:[phone]
--- NOTE | 2018-11-22 13:49 | NUR ---
*-* DISCHARGE PLANNING *-* PATIENT HAS BEEN REFERRED TO: [facility] F:[phone] P:[phone]
--- NOTE | 2018-11-22 13:52 | General Progress Note ---
Assessment/Plan Assessment/Plan S: I am feeling the same O: pain is well managed PHYSICAL EXAMINATION:HEAD AND NECK: Atraumatic and normocephalic. CHEST: Clear to auscultation. HEART: S1, S2. Regular rate and rhythm. ABDOMEN: Soft, no organomegaly. MUSCULOSKELETAL: Decreased ROM of LE secondary to pain NEUROLOGY: Awake, alert, and oriented x3. Meds: reviewed and reconciled in the chart , including colchicine MRI- lumbar spine reviewed ASSESSMENT AND PLAN: 1. Acute on chronic low back pain. Differential diagnosis including metastatic prostate CA. Severe Spinal Stenosis 2. Multiple osteoblastic osseous lesions in the lumbar spine suspicious of metastatic process in this patient with a history of prostate cancers, the possibility of metastasis cannot be excluded. 3. Compression deformity fractures at L2-age indeterminate. 4. Sever Spinal Stenosis 4. Microscopic hematuria. 5. Anemia. 6. Renal failure - age indeterminate. 7. Gastrointestinal and deep vein thrombosis prophylaxis. Plan: Notes from pulmonary reviewed PT.OT consulted Pain management Oncology management, deferred to established primary out patient provider Proceed with ARU evaluation Pending Renal US Avoid nephrotoxic medications No acute Neurological deficiet per MRI LS Ok to followup with [facility]. Subjective Allergies: Coded Allergies: No Known Allergies (Unverified , 11/17/18) Objective Last 24 Hour Vital Signs Date Time Temp Pulse Resp B/P (MAP) Pulse Ox O2 Delivery O2 Flow Rate FiO2 11/22/18 09:00 Room Air 11/22/18 08:41 62 122/51 11/22/18 08:00 97.9 62 12 122/51 (74) 98 11/22/18 04:00 98.8 63 20 131/60 (83) 98 11/22/18 00:00 98.6 58 20 143/50 (81) 98 11/21/18 21:00 Room Air 11/21/18 20:00 99.1 67 20 158/63 (94) 95 11/21/18 18:45 98.2 11/21/18 16:00 98.2 66 18 130/77 (94) 98 Intake and Output 11/21/18 11/22/18 19:00 07:00 Intake Total 700 ml Output Total 1200 ml 1600 ml Balance -500 ml -1600 ml Intake Oral 700 ml Output Urine Total 1200 ml 1600 ml Bladder Scan Volume Amount 290 # Bowel Movements 1 Laboratory Tests 11/22/18 06:54: Sodium Level 139, Potassium Level 4.6, Chloride Level 106, Carbon Dioxide Level 25, Anion Gap 8, Blood Urea Nitrogen 33H, Creatinine 1.7H, Estimat Glomerular Filtration Rate , Glucose Level 117H, Calcium Level 8.8 Height (Feet): 5 Height (Inches): 10.00 Weight (Pounds): 215 Hitesh Summers MD Nov 22, 2018 13:52
--- NOTE | 2018-11-22 15:50 | NUR ---
MANGLE ROLLER NOTES SPOKE WITH [facility] LUMBAR CORSET WILL BE DELIVERED IN 30 MINUTES. PT ACCEPTED TO [facility] ROOM 101 BED [address]. [facility] TO TRANSPORT PT. PT WILL BE SKILLED.
[2018-11-22 16:00] VITALS: BP 150/90
--- NOTE | 2018-11-22 16:32 | NUR ---
CHARGE NURSE NOTES: LUMBAR CORSET DELIVERED TO PATIENT.
--- NOTE | 2018-11-22 16:34 | NUR ---
PREPARING BOX TENDER NOTES SPOKE WITH [facility] PT'S NEPHEW MADE AWARE OF PT'S DC STATUS AND PLACEMENT. WESTERN CONTACT INFORMATION GIVEN. [facility] TO TRANSPORT PT WITH ETA 1800. [facility] AT BEDSIDE.
[2018-11-22] MEDS ORDERED: HYDROCODON-ACE1 EA13 ORAL (17:13)
[2018-11-22] MEDS ORDERED: LIDOCAINE700 M1 TP (17:17)
[2018-11-22] MEDS ORDERED: CLONIDINE0.1 MG ORAL (17:18)
--- NOTE | 2018-11-22 18:17 | NUR ---
NURSE NOTES: RN MADE PT AWARE OF DISCHARGE TO [facility]. REPORT GIVEN TO ZEN STERLING. MADE AWARE PT HAS HEMATURIA OF [place] CATH. PER DR JUAN MIGUEL MD WILL FOLLOW UP WITH PT AT NURSING FACILITY. ORDER TO KEEP PAC[place] CATH. BELONGINGS CHECKED AT BEDSIDE, ALL ACCOUNTED. IV ACCESS DISCONTINUED. PT WAS DISCHARGED IN STABLE CONDITION.
--- NOTE | 2018-11-23 11:57 | Discharge Summary ---
Discharge Summary Discharge Summary _ DATE OF ADMISSION: 11/17/2018 DATE OF DISCHARGE: 11/22/2018 DISCHARGED BY: Dr. Hitesh Summers CONSULTANTS: Dr. Jessee Contreras BRIEF HOSPITAL COURSE: Patient is an 82-year-old -[place] male, with history of back pain. The patient presented with worsening of lower back pain for last couple of weeks. The patient presented to sent to the hospital at least 3 times for the last couple of months. He has medical history significant for BPH, gout and hypertension. He is status post resection for of prostate due to prostate cancer. On evaluation in the ED, blood work did not show any leukocytosis, hemoglobin and hematocrit are stable. Electrolytes were normal. Creatinine was 1.6. Urinalysis showed 40-60 RBC, 0-2 WBC, negative leukocyte esterase. Urine toxicology was negative. EKG showed normal sinus rhythm with no acute changes. Chest x-ray showed a questionable right basilar patchy atelectasis or consolidation. CT of the abdomen and pelvis showed numerous osteoblastic lesions, likely representing metastatic prostate carcinoma. CT of the lumbar spine showed an age-indeterminate compression fracture deformity of the L2 vertebral body. Patient had intractable pain and cannot ambulate secondary to pain. He is unable to care for himself. Patient had multiple falls at home. He was admitted for evaluation of low back pain and multiple osteoblastic lesions on the spine. Manufacturing Quality Manager was consulted. Patient had x-ray showed small bilateral effusions. Per pulmonary recommendation, patient did not complain significant aggressive treatment. Tourist Agent was consulted. Kidney function was monitored. Patient had acute kidney injury on chronic kidney disease, stage III. Patient had hyperuricemia. He was given allopurinol. Toradol and NSAIDs were discontinued. He was given IV hydration. He was given PT. He was seen by rehabilitation medicine physician. He was recommended lumbosacral corset. Pain management was consulted and patient was given [place] and Lidoderm patch. He was placed on heparin subcutaneous for DVT prophylaxis. Patient was eventually transferred to a SNF. FINAL DIAGNOSES: Uterine chronic low back pain differential diagnosis including metastatic prostate CA and severe spinal stenosis Multiple osteoblastic osseous lesion in the lumbar spine suspicious of metastatic process Compression deformity fracture of L2, age indeterminate Severe spinal stenosis Microscopic hematuria Anemia Renal failure age-indeterminate/acute kidney injury on CKD 3B Gout Hypertension Urinary retention Small bilateral pleural effusion Pulmonary atelectasis DISPOSITION: Patient was discharged to a SNF. DISCHARGE MEDICATIONS: Refer to Discharge Medication List I have been assigned to complete a discharge summary on this account, I was not involved with the patient's management. Yamel Abebe NP Nov 23, 2018 11:57
== END 2018-11-22 18:12 | DRG 543 ==
LOC: EDBD 09:46 → EDUNIT# 09:46 → EMR 10:15 → 4E 13:02 → EDBEDREQ 14:23 → 4E 22:33
DX: C79.51 Secondary malignant neoplasm of bone (principal); J98.11 Atelectasis; J90 Pleural effusion, not elsewhere classified; N17.9 Acute kidney failure, unspecified; M48.56XA Collapsed vertebra, not elsewhere classified, lumbar region, initial encounter for fracture; M10.9 Gout, unspecified; N40.0 Benign prostatic hyperplasia without lower urinary tract symptoms; D64.9 Anemia, unspecified; C61 Malignant neoplasm of prostate; I12.9 Hypertensive chronic kidney disease with stage 1 through stage 4 chronic kidney disease, or unspecified chronic kidney disease; N18.3 Chronic kidney disease, stage 3 (moderate); R31.29 Other microscopic hematuria; M48.061 Spinal stenosis, lumbar region without neurogenic claudication; G83.9 Paralytic syndrome, unspecified; N40.1 Benign prostatic hyperplasia with lower urinary tract symptoms; R33.8 Other retention of urine; K59.00 Constipation, unspecified
CPT/HCPCS: 36415; 71045; 72131; 72148; 74176; 76770; 80048; 80053; 80061; 80307; 81003; 82310; 82330; 82550; 82553; 83036; 83605; 84153; 84154; 84443; 84484; 85025; 87040; 93005; 96361; 96374; 96375; 96376; 99285